=== PATIENT | male | born 1960 | race Caucasian/White ===

== ENCOUNTER 2020-01-10 04:38 | Outpatient (CLI) | payer MEDICAID, SELFPAY ==
[2020-01-14 14:14] LABS: PSA, Screening 1.2 ng/mL (0-3.5)
== END 2020-01-10 04:58 ==
PROVIDERS: PCP Emergency Medicine; Visit Provider Urology
DX: Z12.5 Encounter for screening for malignant neoplasm of prostate (principal)
CPT/HCPCS: 36415; 84153

== ENCOUNTER 2020-05-07 11:51 | Emergency (ER) | payer MEDICAID, SELFPAY ==
[2020-05-07 11:58] VITALS: BP 141/97; PULSE 88; RESP 18; TEMP 36.4; O2SAT 96
--- NOTE | 2020-05-07 12:15 | DI.RAD_ITS ---
EXAM: XR HAND RT COMPLETE CLINICAL HISTORY: middle finger pain. TECHNIQUE: 2D digital imaging was performed. COMPARISON: CR LEFT HAND COMPLETE from 01/05/2010 FINDINGS: There is no evidence of acute fracture or dislocation. There is deformity of the 5th metacarpal whic h is most probably from healed fracture site at this level. No radiopaque foreign body. No osseous lesions. IMPRESSION: No acute fracture evident. DATA REPOSITORY: RADIATION DOSE DELIVERED:
--- NOTE | 2020-05-07 12:55 | ED.GENADUL_ITS ---
Discharge Plan Disposition Patient Disposition: HOME Condition: Stable Discharge Details Clinical Impression: Finger pain, right Primary Care Provider: Unknown,Unknown ED Provider: Quan Sheth Home Meds and New Rx's Prescriptions: Continued hydrocortisone 28.4 GM cream 1 nitin Topical TID PRN RF: 0 cyanocobalamin (vitamin B-12) 1,000 MCG/1 ML solution 1,000 mcg IJ MONTHLY Qty: 1 RF: 0 sertraline [Zoloft] 50 mg Tablet 50 mg PO DAILY RF: 0 hydrochlorothiazide 12.5 mg Tablet 12.5 mg PO DAILY RF: 0 Discharge Instructions Instructions: Finger Sprain (ED) Additional Instructions: Examination appears to be more consistent with trauma than infection. X-ray is unremarkable. Splinting offered but declined. Please watch for new or worsening symptoms such as fever, redness, warmth, increased pain, etc. and return immediately to the ER. Otherwise I would recommend resting, elevating, cool compresses every 2 hours for 20 days. Kgpm-twm-ywoabge Tylenol and/or Motrin as directed for discomfort. Contact your primary care the next 24-48 hours to discuss outpatient reevaluation. Medical Decision Making 60-year-old gentleman wubhu-tjbg-gawapaef, presents for right third digit pain that occurred suddenly while lifting up a door. Neuro, vascular, tendon intact. Skin is intact. This appears more traumatic than infectious in nature. Discussed options, will obtain x-ray, no clear indication for antibiotic therapy Right hand x-ray read by me and confirmed by radiology as negative. Discussed x-ray findings and disposition with patient. He declines adilson taping or splinting. We discussed watching for symptoms of infection such as redness, warmth, increasing pain, fever, etc. and the importance of returning to the ER. Otherwise he will rest, elevate, cool compresses every 2 hours for treatment. Biwh-ozn-mctgmit Tylenol and/or Motrin. Medical Records Medical records reviewed: Yes I reviewed the patient's medical records. HPI General Mode of arrival: ambulatory . Date/Time Provider Initiated Documentation: 05/07/20 11:58 . Limitations to Documentation: no limitations . Information obtained by: patient . HPI Narrative: This is a 60-year-old gentleman, sbast-clag-lndwzzcj, past medical history that includes celiac disease, hypertension, presenting to the ER for right hand injury that occurred yesterday. He states that he was lifting a metal door from a shed yesterday, felt a pop or stinging in his right middle finger, and instantly felt pain. Reports the pain was moderate to severe yesterday however the pain now is only a 2 out of 10. He denies any numbness, tingling, weakness. He is able to fully move his finger but reports it feels tight and swollen which makes it difficult. He admits to bruising but denies redness, warmth, fever. He states this appears to be more traumatic like I hit my finger with a hammer as opposed to infectious. He spoke with a couple friends, they were concerned that this may be a spider bite. He states that his tetanus status is up-to-date. He has not taken any zkiz-mxf-dxltahb medications for his discomfort. No additional concerns or complaints at this time Related Data Home Medications Medication Instructions Recorded Confirmed cyanocobalamin (vitamin B-12) 1,000 mcg IJ MONTHLY #1 vial 06/06/12 05/07/20 hydrocortisone 1 nitin TOPICAL TID PRN script 06/06/12 05/07/20 hydrochlorothiazide 12.5 mg PO DAILY 05/07/20 05/07/20 sertraline [Zoloft] 50 mg PO DAILY 05/07/20 05/07/20 Allergies Allergy/AdvReac Type Severity Reaction Status Date / Time praziquantel Allergy Unknown Unverified 11/15/14 13:00 aspirin Allergy Unverified 11/15/14 13:00 hydrocodone AdvReac Intermediate Nausea Unverified 11/15/14 13:00 gluten AdvReac Diarrhea Unverified 11/15/14 13:00 General Stated Complaint: Cellulitis JOSE: 4 Review of Systems Constitutional Constitutional: Denies fever(s) and Denies weakness Musculoskeletal Musculoskeletal: Denies deformity, Reports arthralgias, Denies numbness, Reports stiffness and Denies tingling Integumentary/Breasts Skin/Breast: Denies erythema Neurologic Neurologic: Denies numbness, Denies tingling and Denies weakness [facility] Social History Smoking/Tobacco Use Status: Never Smoking risk assessment performed?: Yes Drug use: Occasionally Do you feel safe at home: Yes Do you feel safe in your relationship?: Yes Exam Const General: cooperative, healthy appearing, comfortable and no acute distress Orientation: alert and awake [facility] Head: normal to inspection, normocephalic and atraumatic Eyes General: appearance normal, both eyes and all related structures Conjunctivae: conjunctivae normal Sclera: sclerae normal Neck Neck: normal visual inspection, trachea midline and supple Resp Effort & Inspection: normal respiratory effort and able to speak in complete sentences Cardio Rate: regular rate Rhythm: regular rhythm Skin General skin exam: no rashes or lesions noted Neuro General: patient alert, patient awake, moves all extremities and no focal motor deficits Cognition: normal cognition Speech: speech normal Gait: normal gait Motor: muscle tone normal throughout Sensory Exam: no sensory deficits noted Extrem General: full ROM and capillary refill normal Other: Right hand third digit with diffuse mild ecchymosis and swelling that extends from the MCP joint distally almost to the DIP joint. Skin is intact. Neuro, vascular, tendon intact. There is minimal diffuse discomfort to palpation but there is no warmth or erythema. No induration or fluctuance. Normal capillary refill. Psych Appearance: grossly normal Mental Status: mental status grossly normal Course Vital Signs Vital signs: Vital Signs Temperature 36.4 C L 05/07/20 11:58 Pulse 88 05/07/20 11:58 Respiratory Rate 18 05/07/20 11:58 Blood Pressure 141/97 H 05/07/20 11:58 Pulse Oximetry 96 05/07/20 11:58 Temperature 36.4 C L 05/07/20 11:58 Temperature Source Temporal Artery Scan 05/07/20 11:58 Pulse 88 05/07/20 11:58 Respiratory Rate 18 05/07/20 11:58 Respiratory Effort Non-Labored 05/07/20 12:02 Blood Pressure 141/97 H 05/07/20 11:58 Blood Pressure Position Sitting 05/07/20 11:58 Pulse Oximetry 96 05/07/20 11:58 Oxygen Delivery Method Room Air 05/07/20 11:58 Oxygen Flow Rate 0 05/07/20 11:58 Pain Level 2 05/07/20 11:58
== END 2020-05-07 13:13 | disposition home or self-care (01) ==
PROVIDERS: Emergency Provider Physician Assistant
DX: S63.612A Unspecified sprain of right middle finger, initial encounter (principal); X50.0XXA Overexertion from strenuous movement or load, initial encounter
CPT/HCPCS: 99283; 73130; 99282

== ENCOUNTER 2021-02-25 03:56 | Outpatient (CLI) | payer MEDICAID, SELFPAY ==
[2021-02-25 12:13] LABS: Vitamin B12 573 pg/mL (193-986)
[2021-02-25 23:15] LABS: PSA, Screening 1.4 ng/mL (0.0-3.5)
[2021-02-26 00:47] LABS: Vitamin D 25 Total 37.4 ng/mL (30-100)
== END 2021-02-25 03:57 | disposition home or self-care (01) ==
LOC: LBO 03:56
PROVIDERS: Physician Assistant; Visit Provider Urology
DX: E55.9 Vitamin D deficiency, unspecified (principal); E53.8 Deficiency of other specified B group vitamins; Z12.5 Encounter for screening for malignant neoplasm of prostate
CPT/HCPCS: 36415; 82306; 84153; 82607

== ENCOUNTER 2021-02-26 04:02 | Outpatient (CLI) | payer MEDICAID, SELFPAY ==
[2021-02-26 10:05] LABS: ALT 45 U/L (16-63); AST 16 U/L (15-37); Albumin 4.4 g/dL (3.4-5.0); Alkaline Phosphatase 66 U/L (46-116); Anion Gap 10.4 mmol/L (3-11); BUN 25 mg/dL (7-18); Bilirubin, Total 1.3 mg/dL (0.2-1.0); CO2 29.6 mmol/L (21.0-32.0); CREATININE 1.1 mg/dL (0.70-1.30); Calcium 8.9 mg/dL (8.5-10.1); Calculated LDL 163 mg/dL (<100); Chloride 99 mmol/L (98-107); Cholesterol 231 mg/dL (<200); Glucose 109 mg/dL (74-106); HDL Cholesterol 48 mg/dL (40-60); Potassium 3.2 mmol/L (3.5-5.1); Sodium 139 mmol/L (136-145); Total Protein 7.4 g/dL (6.4-8.2); Triglyceride 104 mg/dL (<150)
== END 2021-02-26 04:03 | disposition home or self-care (01) ==
PROVIDERS: Visit Provider Physician Assistant
DX: I10 Essential (primary) hypertension (principal); E78.5 Hyperlipidemia, unspecified
CPT/HCPCS: 36415; 80053; 80061

== ENCOUNTER 2021-06-20 13:33 | Emergency (ER) | payer MEDICAID, SELFPAY ==
[2021-06-20 13:38] VITALS: BP 126/89; PULSE 81; RESP 16; TEMP 36.6; O2SAT 98
--- OUTSIDE RECORDS SUMMARY | 2021-06-20 13:49 | XMS_ITS ---
:1960 Author Care Team Providers Name Role Phone HEIDE CORRALES MD Urologist [phone] SANCHEZ AYALA DO Primary Care Provider [phone] Allergies Code Code System Name Reaction Severity Status Onset 2111455 RxNorm Gluten ? ? Active ? 5489 RxNorm Hydrocodone ? ? Active ? Iodine and Iodide Other Moderate to Active ? Containing Severe Products Panlor Vomiting Mild to Active ? (Hydrocodone-acet Moderate manning) 6401 RxNorm Praziquantel ? ? Active ? Medications Name Status Start Date Stop Date ? ? albuterol 90 mcg/actuation aerosol inhaler Active ? Not available Inhale 2 puffs every 4 hours by inhalation route as needed. aspirin 81 mg tablet,delayed release Completed ? 03/02/2021 Take 1 tablet every day by oral route. BD Luer-Chetna Syringe 3 mL 25 gauge x 1 Active ? Not available USE 1 SYRINGE MONTHLY FOR B12 INJECTION cholecalciferol (vitamin D3) 1,250 mcg (50,000 unit) capsule Act hillary ? Not available TAKE 1 CAPSULE BY MOUTH EVERY WEEK cyanocobalamin (vit B-12) 1,000 mcg/mL injection kit Active ? Not available Inject 1 mL every month by subcutaneous route. cyanocobalamin (vit B-12) 1,000 mcg/mL injection solution Comple rabia ? 03/02/2021 INJECT 1 MILLILITER IM EVERY 30 DAYS doxycycline monohydrate 100 mg capsule Completed ? 03/02/2021 Flovent HFA 110 mcg/actuation aerosol inhaler Active ? Not available Inhale 1 puff twice a day by inhalation route. fluoxetine 20 mg capsule Completed ? 022 TK 1 C PO D hydrochlorothiazide 50 mg tablet Active ? Not available TK 1 T PO D ProAir HFA 90 mcg/actuation aerosol Completed ? 03/02/2021 inhaler Problems Name Status Onset Date Source ? Vitamin B Deficiency Active 01/22/2019 ? Pernicious Anemia Active 01/22/2019 ? Anxiety Active 01/22/2019 ? Hypertensive Disorder Active 01/22/2019 ? Irritable Bowel Syndrome Active 01/22/2019 ? Cholelithiasis without Obstruction Active 01/22/2019 ? Celiac Disease Active 01/22/2019 ? Benign Prostatic Hyperplasia Active 01/22/2019 ? Seborrheic Dermatitis Active 01/22/2019 ? Tear of Lateral Meniscus of Knee Active 01/22/2019 ? Procedures Date Name Performed by ? 02/21/1999 Lithotripsy Information not avai lable Notes: at [facility] per pt. in effective pt. brought back to the OR a month later for an open procedure 03/02/2021 CT, Abdomen + Pelvis, W/o Contrast [facility] Radiology (Internal) [address] [place] [address] (Work Place) Results Lab Results Date Name Specimen Result Interpretation Description Value Range Status Address ? 03/02/2021 Urinalysis, Urine ? Color Yellow ? ? P _urology: 41 Dip[address], clean Medical Reflex Micro catch [email or web address] ? ? Urine ? Appearance Clear ? ? P_uro logy: 41 clean [employer] [email or web address] ? ? Urine ? Glucose Normal ? ? P_urolog y: 41 clean [employer] [email or web address] ? ? Urine ? Bilirubin Negative ? ? P_ur ology: 41 clean [employer] [email or web address] ? ? Urine ? Ketones Negative ? ? P_urol ogy: 41 clean [employer] [email or web address] ? ? Urine ? Specific 1.030 ? ? P_urolo gy: 41 clean [place] [employer] [email or web address] ? ? Urine ? Blood Small ? ? P[facility]urology: 41 clean [facility] ? ? Urine ? Ph 6.5 ? ? P_urology: 41 clean [facility] ? ? Urine ? Protein Negative ? ? P_urol ogy: 41 clean [facility] ? ? Urine ? Urobilinog 1 ? ? P_uro logy: 41 clean en [employer] [email or web address] ? ? Urine ? Nitrite negative ? ? P_urol ogy: 41 clean [facility] ? ? Urine ? Leukocyte Negative ? ? P_ur ology: 41 clean Esterase [employer] [email or web address] 02/25/2021 PSA, Serum or ? No ? ? ? [facility] observation [facility] nt recorded. Region[facility] Hospital: [address], [place] 01/25/2020 Urinalysis, Urine ? Color Yellow ? ? P _urology: [address] Dipstick, clean Medical Reflex Micro catch [address], [place] ? ? Urine ? Appearance Clear ? ? P_uro logy: [address] clean Medical catch [employer], [place] ? ? Urine ? Glucose Normal ? ? P_urolog y: [address], [place] ? ? Urine ? Bilirubin Negative ? ? P_ur ology: [address], [place] ? ? Urine ? Ketones Negative ? ? P_urol ogy: [address], [place] ? ? Urine ? Specific 1.025 ? ? P_urolo gy: [address] [place] Medical catch [address], [place] ? ? Urine ? Blood Trace ? ? P_urology: [address] catch [address], [place] ? ? Urine ? Ph 7.0 ? ? P_urology: [address] catch [address], [place] ? ? Urine ? Protein Negative ? ? P_urol ogy: [address] catch [address], [place] ? ? Urine ? Urobilinog 1 ? ? P_uro logy: 41 clean en Medical catch [address], [place] ? ? Urine ? Nitrite negative ? ? P_urol ogy: [address] catch [address], [place] ? ? Urine ? Leukocyte Negative ? ? P_ur ology: 41 clean Esterase Medical catch [employer], [place] 01/30/2019 PSA, Serum or S - PSA Scrn 1.4 NG/mL 0.0-4. Final [facility] Plasma [address] [place] [address] ab NG/mL (Internal) : [address], [facility] 01/30/2019 Urinalysis, Urine ? Color Yellow ? ? P _urology: [address] Dipstick, Medical Reflex Micro [address], [place] ? ? Urine ? Appearance Clear ? ? P_uro logy: [address], [place] ? ? Urine ? Glucose Normal ? ? P_urolog y: [address], [place] ? ? Urine ? Bilirubin Negative ? ? P_ur ology: [address], [place] ? ? Urine ? Ketones Negative ? ? P_urol ogy: [address], [place] ? ? Urine ? Specific 1.010 ? ? P_urolo gy: [address] [place] [employer] [email or web address] ? ? Urine ? Blood Negative ? ? P_urolog y: 41 [employer] [email or web address] ? ? Urine ? Ph 7.5 ? ? P_urology: 41 [employer] [email or web address] ? ? Urine ? Protein Trace ? ? P_urolog y: 41 [employer] [email or web address] ? ? Urine ? Urobilinog 0.2 ? ? P_uro logy: 41 en [facility] ? ? Urine ? Nitrite negative ? ? P_urol ogy: 41 [facility] ? ? Urine ? Leukocyte Negative ? ? P_ur ology: 41 Esterase [facility] [facility] 10/08/2016 Venipuncture BLD ? Venpn* ? ? Final [facility] Hospital L ab (Internal) : [address] 10/08/2016 Urinalysis, UR ? UA-WBC 0-3 [hpf] 0-3 Chhaya [facility] Microscopic [hpf] Hospi na Lab (Internal) : [address] t ? ? UR ? UA-RBC 0-2 [hpf] 0-2 Final [facility] [hpf] Hospital L ab (Internal) : [address] t ? ? UR ? UA-bacteri rare [hpf] none Final [facility] L ab [hpf] (Internal) : [address] t ? ? UR ? UA-epithel none seen none Final [facility] [hpf] seen Hospital L ab [hpf] (Internal) : [address] t ? ? UR ABNORMA UA-mucus few [hpf] none Final [facility] seen Hospital L ab [hpf] (Internal) : [address] 10/08/2016 Urinalysis, UR ? UA-color yellow pale Final [facility] Dipstick, yellow Hospita l Lab Reflex Micro (Int ernal): [address] t ? ? UR ? UA-appear clear clear Final [facility] Hospital L ab (Internal) : [address] t ? ? UR ? UA-spec 1.025 1.003- Final [facility] untry Grav 1.035 Hospital L ab (Internal) : [address] t ? ? UR ? UA-pH 6.0 [pH] 4.6-8. Final [facility] untry 0 [pH] Hospital L ab (Internal) : [address] ? ? UR ? UA-leuk negative negati Final [facility] Est Hospital L ab (Internal) : [address] ? ? UR ? UA-nitrite negative negati Final [facility] Hospital L ab (Internal) : [address] ? ? UR ? UA-prot negative negati Final [facility] Hospital L ab (Internal) : [address] ? ? UR ? UA-gluc negative negati Final [facility] Hospital L ab (Internal) : [address] ? ? UR ABNORMA UA-ketone trace negati Final [facility] Hospital L ab (Internal) : [address] ? ? UR ? UA-urobil normal normal Final [facility] ab (Internal) : [address] ? ? UR ? UA-bili negative negati Final [facility] L ab (Internal) : [address] ? ? UR ABNORMA UA-blood moderate negati Final [facility] Hospital L ab (Internal) : [address] 10/08/2016 Culture, BLD ? Final microbiolog ? Final [facility] Blood y results Hospita l Lab (Internal) : [address] 10/08/2016 Culture, BLD ? Final microbiolog ? Final [facility] Blood y results Hospita l Lab (Internal) : [address] 10/08/2016 Neutrophil BLD ? Anc-manual 5.47 ? Chhaya l [facility] Count, 10*3/uL Hospital Lab Absolute (Interna l): (Anc), Blood [address] 10/08/2016 Differential, BLD High Polys 92 % 40-75 Final [facility] Manual, Blood % Hos pital Lab (Internal) : [address] ? ? BLD ? Bands 0 % 0-5 % Final [facility] Hospital L ab (Internal) : [address] ? ? BLD Low Lymphs 5 % 20-50 Final [facility] Hospital L ab (Internal) : [address] ? ? BLD ? Real 2 % 2-10 % Final [facility] Hospital L ab (Internal) : [address] ? ? BLD ? Eos 1 % 0-6 % Final [facility] Hospital L ab (Internal) : [address] ? ? BLD ? Baso 0 % 0-1 % Final [facility] Hospital L ab (Internal) : [address] ? ? BLD ? Atyp Lymph 0 % ? Final [facility] Hospital L ab (Internal) : [address] t ? ? BLD ABNORMA Plts, Est. low adequa Final [facility] L te Hospital L ab (Internal) : [address] t ? ? BLD ? RBC normal normal Final [facility] Morphology Hospit al Lab (Internal) : [address] 10/08/2016 CMP, Serum or S ? g/r 105 mg/dL 74-106 Fin [facility] Plasma mg/dL Hospital L ab (Internal) : [address] ? ? S ? Bun 17 mg/dL 9-20 Final [facility] untry mg/dL Hospital L ab (Internal) : [address] ? ? S ? Crea 0.90 mg/dL 0.66-1 Final [facility] .25 Hospital L ab mg/dL (Internal) : [address] t ? ? S ? Ca 9.6 mg/dL 8.4-10 Final [facility] ountry .2 Hospital L ab mg/dL (Internal) : [address] ? ? S Low Na 136 mmol/L 137-14 Final [facility] 5 Hospital L ab mmol/L (Internal) : [address] ? ? S ? K 3.5 mmol/L 3.5-5. Final [facility] 1 Hospital L ab mmol/L (Internal) : [address] ? ? S ? Cl 100 mmol/L 98-107 Final [facility] mmol/L Hospital L ab (Internal) : [address] ? ? S ? Tco2 25.0 mmol/L 22.0-3 Final [facility] 0.0 Hospital L ab mmol/L (Internal) : [address] ? ? S ? Tp 7.6 g/dL 6.3-8. Final [place] untry 2 g/dL Hospital L ab (Internal) : [address] ? ? S ? Alb 4.8 g/dL 3.5-5. Final [place] [facility]try 0 g/dL Hospital L ab (Internal) : [address] ? ? S High Tbil 1.5 mg/dL 0.2-1. Final [facility] ountry 3 Hospital L ab mg/dL (Internal) : [address] ? ? S ? Alp 55 U/L 50-136 Final [place] [facility] try U/L Hospital L ab (Internal) : [address] t ? ? S ? Alt (Sgpt) 26 U/L 21-72 Final [facility] U/L Hospital L ab (Internal) : [address] t ? ? S ? Ast (Sgot) 18 U/L 17-59 Final [facility] U/L Hospital L ab (Internal) : [address] 10/08/2016 CBC W/ Auto BLD ? Wbc 6.0 10*3/uL 5.0-10 Fin al [facility] Diff .0 Hospital L ab 10*3/u (Internal) : L [address] ? ? BLD ? Rbc 4.94 4.60-6 Final [place] [facility] 10*6/uL .00 Hospital Lab 10*6/u (Internal) : L [address] ? ? BLD ? Hgb 16.5 g/dL 14.0-1 Final [facility] ountry 8.0 Hospital L ab g/dL (Internal) : [address] ? ? BLD ? Hct 45.3 % 41.0-5 Final [place] [facility] 1.0 % Hospital L ab (Internal) : [address] ? ? BLD ? Mcv 91.7 fL 80.0-9 Final [place] [facility] 6.0 fL Hospital L ab (Internal) : [address] ? ? BLD High Mch 33.4 pg 26.0-3 Final [place] [facility] 2.0 pg Hospital L ab (Internal) : [address] ? ? BLD High Mchc 36.4 g/dL 31.0-3 Final [place] [facility] 5.0 Hospital L ab g/dL (Internal) : [address] ? ? BLD ? Rdw 12.0 % 11.5-1 Final [place] [facility] 4.5 % Hospital L ab (Internal) : [address] ? ? BLD ? Plt 142 10*3/uL 130-45 Final [place] 0 Hospital L ab 10*3/u (Internal) : L [address] Past Encounters 03/02/2021 Induration Penis Plastica; Screening for Malignant Neoplasm of Prostate; Family History of Prostate Cancer; Urinary Tract Infectious Disease; Kidney Stone; Blood in Urine; Nodule of Lung; Low Back Pain Heide Corrales MD: [address] [place] [address], Ph. 01/25/2020 Induration Penis Plastica; Screening for Malignant Neoplasm of Prostate; Family History of Prostate Cancer; Urinary Tract Infectious Disease Heide Corrales MD: [address] [place] [address], Ph. Social History Tobacco Smoking Status Never Smoker Vaccine List None recorded. Plan of Care Reminders Provider Appointments None ? ? recorded. Lab None ? ? recorded. Referral None ? ? recorded. Procedures None ? ? recorded. Surgeries None ? ? recorded. Imaging None ? ? recorded. Vitals 03/02/2021 02:40PM Office 20 Height Weight BMI Blood Pressure 182.88 cm 98.88 kg 29.6 kg/m2 136/82 mm[Hg] 01/25/2020 03:30PM Office 15 Height Weight BMI Blood Pressure 182.88 cm 93.3 kg 27.9 kg/m2 120/98 mm[Hg] 01/30/2019 08:30AM Office 15 Height Weight BMI 182.88 cm 86.18 kg 25.8 kg/m2
--- NOTE | 2021-06-20 14:00 | DI.RAD_ITS ---
Exam(s) XR FOOT LT COMPLETE EXAM: XR FOOT LT COMPLETE CLINICAL HISTORY: Foot Pain. TECHNIQUE: 2D digital imaging was performed. Three views. COMPARISON: CR LEFT FOOT COMPLETE from 12/01/2009 FINDINGS: BONES: No acute fracture is present. No bony destructive lesion is seen. JOINTS: No dislocation present. Mild degenerative changes 1st MTP joint. Mild hallux valgus. SOFT TISSUE: Normal. IMPRESSION: No acute abnormality. DATA REPOSITORY: RADIATION DOSE DELIVERED:
--- NOTE | 2021-06-20 14:42 | DI.VRAD_ITS ---
PROCEDURE INFORMATION: Exam: XR Left Foot Exam date and time: 06/20/2021 2:16 PM Age: 61 years old Clinical indication: Pain; Foot; Left TECHNIQUE: Imaging protocol: XR Left foot. Views: 3 or more views. COMPARISON: No relevant prior studies available. FINDINGS: Bones/joints: Hallux valgus deformity is present. Mild degenerative changes of the 1st metatarsophalangeal joint. There is no evidence of acute fracture. There is no evidence of joint malalignment or dislocation. Soft tissues: Medial soft tissue swelling. IMPRESSION: 1. Hallux valgus deformity is present. 2. Medial soft tissue swelling. 3. Mild degenerative changes of the 1st metatarsophalangeal joint. 4. No evidence of acute fracture. 5. No evidence of acute dislocation. Dictated and Authenticated by: Juan Carlos Al MD. Ordering:DARLYN Nicole MD
--- NOTE | 2021-06-20 14:52 | W.ED.GENAD ---
Discharge Plan Disposition Patient Disposition: HOME Condition: Stable Discharge Details Clinical Impression: Left foot pain, Gout attack Primary Care Provider: Unknown,Unknown ED Provider: Bonnie Pat Home Meds and New Rx's Prescriptions: New cephalexin 500 mg tablet 500 mg PO BID 7 Days Qty: 14 0RF indomethacin 25 mg capsule 25 mg PO TID 7 Days Qty: 21 0RF Rx Instructions: administer with food or milk Continued cyanocobalamin (vitamin B-12) 1,000 MCG/1 ML solution 1,000 mcg IJ MONTHLY Qty: 1 0RF atorvastatin 40 mg Tablet 40 mg PO DAILY 0RF atorvastatin 10 mg Tablet 10 mg PO DAILY 0RF hydrochlorothiazide 12.5 mg Tablet 12.5 mg PO DAILY 0RF No Action hydrocortisone 28.4 GM cream 1 nitin Topical TID PRN 0RF Discharge Instructions Instructions: Bunion (ED), Gout (ED) Additional Instructions: At this time uric acid is pending. Please take indomethacin as prescribed. you may alternate this with Tylenol. Take the antibiotic as prescribed. Take both medications with food, take yogurt or probiotic while taking the antibiotics. Rest, ice, compression, elevation. Use the walking boot as needed for comfort. If no improvement after 5 to 7 days please follow-up with orthopedics and/or your primary care provider. Follow up with primary care provider in 3-5 days. Return to ED sooner if any worsening or concerns. Increase oral fluids. Please take Tylenol or Ibuprofen with food every 4-6 hours as needed for pain and swelling. Discussed with your primary care provider colchicine as a preventative for gout. Referrals: Kurtis Castañeda MD [ [facility] STAFF PHYSICIAN] - 1 week Medical Decision Making Patient reports increased foot pain after dancing yesterday. He does endorse swelling and erythema. 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 Patient reports a week and a half long history of foot pain. He did eat became ill yesterday. He does endorse alcohol he reports 3 shots of vodka daily. No significant injury noted. He does note that he has had an issue with this amended. He noted increased pain today upon wakening this tender to touch or any movement increased pain with ambulation and weightbearing. Denies any fever chills denies any calf pain or any other systemic associated symptoms. He does have a past medical history of hyperlipidemia, fatty liver disease. Differential diagnosis includes not limited to cellulitis, fracture, gout. Imaging protocol: XR Left foot. Views: 3 or more views. COMPARISON: No relevant prior studies available. FINDINGS: Bones/joints: Hallux valgus deformity is present. Mild degenerative changes of the 1st metatarsophalangeal joint. There is no evidence of acute fracture. There is no evidence of joint malalignment or dislocation. Soft tissues: Medial soft tissue swelling. IMPRESSION: 1. Hallux valgus deformity is present. 2. Medial soft tissue swelling. 3. Mild degenerative changes of the 1st metatarsophalangeal joint. 4. No evidence of acute fracture. 5. No evidence of acute dislocation. At this time I do suspect gouty arthritis. Discussed options with patient uric acid blood test ordered. We will give patient indomethacin and trial of cephalexin for possible cellulitis. We will place in a walking boot and referral will be given for clinical studies specialist. Discussed home care with patient who verbalized understanding. HPI General Mode of arrival: wheelchair. Date/Time Provider Initiated Documentation: 06/20/21 14:07. Limitations to Documentation: no limitations. Information obtained by: patient and RN notes reviewed. HPI Narrative: Patient reports increased foot pain after dancing yesterday. He does endorse swelling and erythema. 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 Patient reports a week and a half long history of foot pain. He did eat became ill yesterday. He does endorse alcohol he reports 3 shots of vodka daily. No significant injury noted. He does note that he has had an issue with this amended. He noted increased pain today upon wakening this tender to touch or any movement increased pain with ambulation and weightbearing. Denies any fever chills denies any calf pain or any other systemic associated symptoms. He does have a past medical history of hyperlipidemia, fatty liver disease. Related Data Home Medications Medication Instructions Recorded Confirmed cyanocobalamin (vitamin B-12) 1,000 mcg IJ MONTHLY #1 vial 06/06/12 06/20/21 1,000 mcg/mL injection solution hydrocortisone 1 % topical cream 1 nitin TOPICAL TID PRN script 06/06/12 06/20/21 hydrochlorothiazide 12.5 mg tablet 12.5 mg PO DAILY 05/07/20 06/20/21 atorvastatin 10 mg tablet 10 mg PO DAILY 06/20/21 06/20/21 atorvastatin 40 mg tablet 40 mg PO DAILY 06/20/21 06/20/21 cephalexin 500 mg tablet 500 mg PO BID 7 Days #14 tab 06/20/21 indomethacin 25 mg capsule 25 mg PO TID 7 Days #21 cap 06/20/21 Previous Rx's Medication Instructions Recorded cephalexin 500 mg tablet 500 mg PO BID 7 Days #14 tab 06/20/21 indomethacin 25 mg capsule 25 mg PO TID 7 Days #21 cap 06/20/21 Allergies Allergy/AdvReac Type Severity Reaction Status Date / Time praziquantel Allergy Unknown Unverified 06/20/21 13:53 aspirin Allergy Unverified 06/20/21 13:53 hydrocodone AdvReac Intermediate Nausea Unverified 06/20/21 13:53 gluten AdvReac Diarrhea Unverified 06/20/21 13:53 General Stated Complaint: Orthopedic JOSE: 4 Review of Systems All systems reviewed & are unremarkable except as noted in HPI and below Musculoskeletal Musculoskeletal: Reports as per HPI and Reports arthralgias PFSH All Active Problems (Updated 06/20/21 @ 15:52 by Bonnie Pat) Finger pain, right (Acute) Left foot pain (Acute) Gout attack (Acute) Social History Smoking/Tobacco Use Status: Never Smoking risk assessment performed?: Yes Alcohol Intake: current Alcohol type: hard liquor Drug use: Occasionally Substance use type: does not use Do you feel safe at home: Yes Do you feel safe in your relationship?: Yes Exam Const General: cooperative, healthy appearing, comfortable, no acute distress, well developed and well groomed Nutritional Appearance: average body habitus and well nourished Orientation: alert, awake and oriented x3 Extrem General: normal to inspection, no pedal edema and no calf tenderness Left lower extremity: lower leg Details: normal to inspection and no edema; Negative for no erythema, no tenderness and no localized swelling, ankle Details: normal to inspection and no edema; Negative for no tenderness and no swelling and foot Details: tenderness Location: of the great toe Location: at the MTP joint and warmth Course Vital Signs Vital signs: Vital Signs Temperature 36.6 C 06/20/21 13:38 Pulse 81 06/20/21 13:38 Respiratory Rate 16 06/20/21 13:38 Blood Pressure 126/89 06/20/21 13:38 Pulse Oximetry 98 06/20/21 13:38 Temperature 36.6 C 06/20/21 13:38 Temperature Source Temporal Artery Scan 06/20/21 13:38 Pulse 81 06/20/21 13:38 Respiratory Rate 16 06/20/21 13:38 Respiratory Effort 06/20/21 13:50 Blood Pressure 126/89 06/20/21 13:38 Blood Pressure Position Sitting 06/20/21 13:38 Pulse Oximetry 98 06/20/21 13:38 Oxygen Delivery Method Room Air 06/20/21 13:38 Oxygen Flow Rate 0 06/20/21 13:38 Pain Level 8 06/20/21 13:38
[2021-06-20] MEDS: Indomethacin 25 MG CAP 50 MG PO (15:50)
[2021-06-20] MEDS: Cephalexin 500 MG CAP PO (15:50)
[2021-06-20] MEDS: Cephalexin 500 MG CAP, 2 CAPS/BTL PO (15:50)
[2021-06-20 16:06] LABS: Uric Acid 7.1 mg/dL (3.5-7.2)
== END 2021-06-20 16:04 | disposition home or self-care (01) ==
PROVIDERS: Emergency Provider Registered Nurse Emergency
DX: M79.672 Pain in left foot (principal); M10.072 Idiopathic gout, left ankle and foot
CPT/HCPCS: 29515; 99283; 73630; 84550

== ENCOUNTER 2022-06-23 08:39 | Outpatient (CLI) | payer MEDICAID, SELFPAY ==
[2022-06-23 09:58] LABS: Bilirubin Negative (Negative); Blood Trace-intact (Negative); Clarity Clear (Clear); Glucose Negative (Negative); Ketones Negative (Negative); Leukocyte Esterase Negative (Negative); Nitrite Negative (Negative); pH 7.5 (5-8)
[2022-06-23 10:17] LABS: Bacteria Rare HPF (Negative); Crystals Negative HPF (Negative); Epithelial Cells Rare HPF (Negative); Mucus Trace (Negative); WBC 0-2 HPF (0-5)
[2022-06-23 10:18] LABS: C & S Indicated? No; Casts Negative LPF (Negative)
[2022-06-23 18:29] LABS: PSA, Screening 1.7 ng/mL (<=4.5)
== END 2022-06-23 08:40 | disposition home or self-care (01) ==
PROVIDERS: Visit Provider Urology
DX: R39.89 Other symptoms and signs involving the genitourinary system (principal)
CPT/HCPCS: 36415; 84153; 81003; 81015

== ENCOUNTER 2022-07-03 12:34 | Emergency (ER) | payer MEDICAID, SELFPAY ==
--- NOTE | 2022-07-03 12:30 | RT.EKG_ITS ---
APPROVED REPORT Exam: Resting ECG Reason for Exam: dizziness Patient Location: E HR:60 bpm ECG Measurements Heart Rate 60 AXIS VT 186 P 41 QRSd 91 QRS -8 QT 441 T 30 QTc 443 Conclusion Sinus rhythm...normal P axis, V-rate 60- 99
[2022-07-03 12:38] VITALS: BP 127/89; PULSE 64; RESP 20; TEMP 36.8; O2SAT 98
--- NOTE | 2022-07-03 12:54 | ED.GENADUL_ITS ---
Discharge Plan Disposition Patient Disposition: Home Discharge Details Clinical Impression: Dehydration after exertion Primary Care Provider: Unknown,Unknown ED Provider: Pelon Kyle Home Meds and New Rx's Prescriptions: No Action hydrocortisone 28.4 GM cream 1 nitin Topical TID PRN cyanocobalamin (vitamin B-12) 1,000 MCG/1 ML solution 1,000 mcg IJ MONTHLY Qty: 1 atorvastatin 40 mg Tablet 40 mg PO DAILY atorvastatin 10 mg Tablet 10 mg PO DAILY hydrochlorothiazide 12.5 mg Tablet 12.5 mg PO DAILY Discharge Instructions Instructions: Dehydration (ED) Additional Instructions: Please continue taking all your regular medication. Please make sure you hydrate yourself well. Please avoid any strenuous activity for the next 24 hours. I would suggest getting some hydration formula that you can take over the course of the next 2 days. Please follow-up with primary care doctor as needed. Medical Decision Making 62-year-old gentleman presents to the emergency department for evaluation of lightheadedness. EKG demonstrates a normal sinus rhythm at 60. Normal ST segments and T waves. Intervals are also normal. No signs of ischemia on EKG. From a cardiac perspective, he had a cardiac work-up at [facility] approximately a year ago for some ill-defined chest pains. At that time he had an a stress test and an echocardiogram that he reports is normal. He was placed on lisinopril and statins. He was not compliant with the statins because of cramps. He started taking the statin again 2 days ago. Patient's labs were unremarkable except for mild elevation of BUN consistent with dehydration. Following the liter of IV fluids patient states he felt great deal better. HPI General Date/Time Provider Initiated Documentation: 07/03/22 12:39 . HPI Narrative: 62-year-old male presented to the emergency room for evaluation of lightheadedness. He states that after spending approximate hour and a half outside washing his car, taking a shower, while trying to shave to get ready for a he felt lightheaded. He states that at some point he thought he was going to pass out. Not associated with any headache. No chest pain. No shortness of breath. No cough. No back pain. No abdominal pain. He states that he had 2 extra bowel movements which is unusual for him. The lightheadedness persisted. He states he was able to finish shaving and then lay down. Given that the symptoms persisted he came to the emergency department. Currently in the emergency department he is not lightheaded just feels a bit foggy. No focal weakness. No visual changes Related Data Home Medications Medication Instructions Recorded Confirmed cyanocobalamin (vitamin B-12) 1,000 mcg IJ MONTHLY #1 vial 06/06/12 07/03/22 1,000 mcg/mL injection solution hydrocortisone 1 % topical cream 1 nitin topical TID PRN 06/06/12 07/03/22 hydrochlorothiazide 12.5 mg tablet 12.5 mg PO DAILY 05/07/20 07/03/22 atorvastatin 10 mg tablet 10 mg PO DAILY 06/20/21 07/03/22 atorvastatin 40 mg tablet 40 mg PO DAILY 06/20/21 07/03/22 Allergies Allergy/AdvReac Type Severity Reaction Status Date / Time praziquantel Allergy Unknown Unverified 06/20/21 13:53 aspirin Allergy Unverified 06/20/21 13:53 hydrocodone AdvReac Intermediate Nausea Unverified 06/20/21 13:53 gluten AdvReac Diarrhea Unverified 06/20/21 13:53 General Stated Complaint: Dizzy/Sync JOSE: 3 Review of Systems Narrative: 10 point review of systems is negative unless otherwise specified in HPI PFSH All Active Problems (Updated 07/03/22 @ 14:49 by Pelon Kyle MD) Finger pain, right (Acute) Dehydration after exertion (Acute) Social History Smoking/Tobacco Use Status: Never Smoking risk assessment performed?: Yes Alcohol Intake: current Alcohol Intake frequency: 0-2 drinks per day Alcohol type: hard liquor Drug use: Occasionally Substance use type: does not use Do you feel safe at home: Yes Do you feel safe in your relationship?: Yes Exam Narrative Exam Narrative: Adult normal exam General: A,A Ox3, Calm, no apparent distress, well developed, pleasant and cooperative Head Size/Shape: normocephalic, atraumatic Eyes Pupils: PERRLA Extraocular Mobility: intact and symmetrical, no nystagmus Conjunctiva: non-injected, anicteric, no discharge Ears, Nose, Throat Nares: patent bilaterally Oral Cavity: moist Neck: Supple Respiratory Respiratory Effort: no dyspnea Auscultation: clear to auscultation bilaterally, normal breath sounds, no wheezing, no rales/crackles Cardiovascular Heart Auscultation: regular rate and rhythm, normal S1, normal S2, no murmurs, no rubs, no gallops, Abdomen Inspection and Palpation: soft, non-tender, non-distended, no hepatosplenomegaly Musculoskeletal System Joints, Bones, and Muscles: no deformities Extremities: warm and well-perfused, no cyanosis, capillary refill <2 seconds Skin Skin Inspection: no rash, no lesions, no bruising Neurological Motor: normal tone, normal strength, moving all extremities equally 2-12 grossly intact Psychiatric: good insight, good judgement, normal mood and affect Course Vital Signs Vital signs: Vital Signs Temperature 36.8 C 07/03/22 12:38 Pulse 64 07/03/22 12:38 Respiratory Rate 20 07/03/22 12:38 Blood Pressure 127/89 07/03/22 12:38 Pulse Oximetry 98 07/03/22 12:38 Temperature 36.8 C 07/03/22 12:38 Temperature Source Oral 07/03/22 12:38 Pulse 64 07/03/22 12:38 Respiratory Rate 20 07/03/22 12:38 Respiratory Effort Normal, Non-Labored 07/03/22 12:49 Blood Pressure 127/89 07/03/22 12:38 Blood Pressure Position Supine 07/03/22 12:38 Pulse Oximetry 98 07/03/22 12:38 Oxygen Delivery Method Room Air 07/03/22 12:38 Oxygen Flow Rate 0 07/03/22 12:38 Pain Level 0 07/03/22 12:38
[2022-07-03 12:57] VITALS: RESP 16
[2022-07-03] MEDS: Normal Saline 1,000 ML 1000 ML IV (13:15)
[2022-07-03 13:26] LABS: Abs Immature Grans 0.02 10^3/uL (0.0-0.06); Absolute Basophil Count 0.02 10^3/uL (0.0-0.2); Absolute Eosinophil Count 0.03 10^3/uL (0.0-0.7); Absolute Lymphocyte Count 0.76 10^3/uL (1.2-3.4); Absolute Monocyte Count 0.49 10^3/uL (0.1-0.8); Absolute Neutrophil Count 4.16 10^3/uL (1.2-6.7); Basophils % 0.4; Eosinophils % 0.5; HCT 38.6 % (40.0-50.0); HGB 14.2 g/dL (13.5-17.5); Immature Grans % 0.4; Lymphocytes % 13.9; MCH 33.9 pg (27.0-33.0); MCHC 36.8 % (32.0-36.0); MCV 92 fL (80-95); MPV 9.4 fL (8.0-11.0); Monocytes % 8.9; Neutrophils % 75.9; Platelet Count 154 10^3/uL (130-400); RBC 4.19 10^6/uL (4.36-5.78); RDW 11.5 % (11.8-14.1); RDW-SD 38.5 fL; WBC 5.48 10^3/uL (4.4-10.8)
[2022-07-03 13:40] LABS: ALT 30 U/L (16-63); AST 15 U/L (15-37); Albumin 4.2 g/dL (3.4-5.0); Alkaline Phosphatase 54 U/L (46-116); Anion Gap 7.4 mmol/L (3-11); BUN 27 mg/dL (7-18); Bilirubin, Total 1.1 mg/dL (0.2-1.0); CO2 27.6 mmol/L (21.0-32.0); CREATININE 1.3 mg/dL (0.70-1.30); Calcium 8.9 mg/dL (8.5-10.1); Chloride 102 mmol/L (98-107); Estimated GFR 62.89 (mL/min/1.73m2); Glucose 122 mg/dL (74-106); Potassium 3.7 mmol/L (3.5-5.1); Sodium 137 mmol/L (136-145); Total Protein 7.1 g/dL (6.4-8.2); Troponin I < 50 ng/L (<or=60)
[2022-07-03 14:53] VITALS: BP 123/78; PULSE 64; RESP 18; O2SAT 99
== END 2022-07-03 14:57 | disposition home or self-care (01) ==
PROVIDERS: Emergency Provider Emergency Medicine; PCP Physician Assistant
DX: R42 Dizziness and giddiness (principal); R53.83 Other fatigue; R51.9 Headache, unspecified; E86.0 Dehydration
CPT/HCPCS: 36415; 80053; 93005; 96360; 99283; 84484; 85025; 93010; 99284

== ENCOUNTER 2023-02-16 11:02 | Emergency (ER) | payer MEDICAID, SELFPAY ==
--- NOTE | 2023-02-16 11:00 | RT.EKG_ITS ---
APPROVED REPORT Exam: Resting ECG Reason for Exam: sob Patient Location: E HR:72 bpm ECG Measurements Heart Rate 72 AXIS MI 177 P 8 QRSd 102 QRS 5 QT 404 T 47 QTc 444 Conclusion Sinus rhythm...normal P axis, V-rate 60- 99 Normal sinus rhythm at a rate of 72. Normal axis. Interventricular conduction delay QRS 102 ms. MI and QTc within normal limits. No acute ST segment abnormalities. Compared to prior dated earlier t his year. No acute injury pattern.
[2023-02-16 11:06] VITALS: BP 103/69; PULSE 96; RESP 20; TEMP 36.8; O2SAT 97
--- NOTE | 2023-02-16 11:11 | W.ED.GENAD ---
Discharge Plan Disposition Patient Disposition: Home Discharge Details Clinical Impression: Upper respiratory infection Primary Care Provider: Anant Lamb ED Provider: Matti Sarabia Home Meds and New Rx's Prescriptions: New benzonatate 150 mg capsule 150 mg PO TID PRN (Reason: cough) Qty: 30 0RF Continued hydrocortisone 28.4 GM cream 1 nitin Topical TID PRN cyanocobalamin (vitamin B-12) 1,000 MCG/1 ML solution 1,000 mcg IJ MONTHLY Qty: 1 atorvastatin 40 mg Tablet 40 mg PO DAILY atorvastatin 10 mg Tablet 10 mg PO DAILY hydrochlorothiazide 12.5 mg Tablet 12.5 mg PO DAILY albuterol sulfate [Ventolin HFA] 90 mcg/actuation HFA aerosol inhaler 2 inh INHALATION Q4H PRN Patient Comments: INHALE 2 PUFFS BY MOUTH EVERY 4 HOURS NEEDED FOR WHEEZING, USE WITH SPACER Discharge Instructions Instructions: Benzonatate (By mouth), Upper Respiratory Infection (ED) Additional Instructions: You were seen in the emergency department for your cough for 3 days. There is no strain on your heart per labs, no severe elevation of white blood cells and your lactate is negative meaning you are not septic. Your chest x-ray is clear of any focal pneumonia. Please take luzq-bfu-[id number] cold medicines like Mucinex. Please use therapeutic dosing of Tylenol (acetamenophen) & Advil (ibuprofen) in an alternating fashion as follows: Take 1000mg of Tylenol every 6 hours without missing doses- that is 4 times per day. Care Home in between the Tylenol dosings, take 400-600mg of Advil also on a 6 hour schedule, that is also 4 times per day. The daily maximum dosing of Tylenol is 4000mg, and the daily maximum dosing of Advil is 2400mg. This is safe to do for weeks. Please note that some common cold medications & prescription pain medications may contain acetamenophen and you need to read OTC drug labels and factor that in to maximum daily dosings. Take the prescribed benzonatate for cough suppression 3 times per day as needed but perform deep breathing exercises if taking this medication frequently. Please return for failure to improve by day 7-10 of illness or significant worsening with respiratory distress Referrals: Anant Lamb [Primary Care Provider] - Discharge Data Discharge Date/Time-TO BE ENTERED AT DEPARTURE: 12/27/23 13:06 Medical Decision Making This dictation utilizes ixktf-zu-rmxw dictation software and may contain unedited grammatical errors. 62 y/o M presents to ED today with a chief complaint of generalized cold symptoms, productive cough, mild shortness of breath in the setting of chronic asthma. Patients symptoms onset about 3 days ago, his young son has similar symptoms. Patients' medical history: asthma, HTN. Family and social history: sick contact, no travel, otherwise negative. Pertinent exam findings / vital signs include question mild diminished lung sounds L middle lobes, no overt rhonchi, non-hypoxic, nontoxic overall. Differential / pathologies of concern include Pneumonia, Viral Syndrome, URI, Unlikely cardiac in nature. Diagnostic studies of: -CBC, CMP, Trop I, BNP, Mg++, CXR, EKG. -CBC no leukocytosis -CMP no major electrolyte abnormalities -Trop I/BNP neg -EKG wnl, NSR, no ST changes, normal axis, good R wave progression, normal MO intervals, narrow QRS, rate 70s -CXR no focal pneumonia Interventions of: -Discussed likely viral syndrome with the patient but prescribed him Tessalon Perles for comfort and getting some rest at night, recommend he return if symptoms are worsening over the course of 7 to 10 days onset for empiric antibiotics at that time, the patient was comfortable with this disposition. Findings not consistent with hypoxemic respiratory failure, sepsis, pneumonia. Disposition of Upper Respiratory Infection. Patient verbalized understanding of the plan and return to ED criteria and engaged in shared decision making. Medical Records Medical records reviewed: Yes I reviewed the patient's medical records. Imaging Data Radiologic Study: Imaging: X-Ray Radiologist's impression: XR CHEST 2V PA LATERAL EXAM: XR CHEST 2V PA LATERAL CLINICAL HISTORY: cough. TECHNIQUE: 2D digital imaging was performed. COMPARISON: No exams were available for comparison FINDINGS: 2 views: Heart size is normal. The mediastinum is not widened. Lungs are clear. No infiltrates nor pleural effusions. IMPRESSION: No acute pulmonary findings. Lab Data Lab results narrative: POC Covid/Flu negative Labs: Laboratory Tests Range/Units 02/16/23 11:42 WBC (4.4-10.8) 10^3/uL 5.19 RBC (4.36-5.78) 10^6/uL 4.31 L Hgb (13.5-17.5) g/dL 14.3 Hct (40.0-50.0) % 40.3 MCV (80-95) fL 94 MCH (27.0-33.0) pg 33.2 H MCHC (32.0-36.0) % 35.5 RDW (11.8-14.1) % 11.7 L Plt Count (130-400) 10^3/uL 168 MPV (8.0-11.0) fL 9.4 Immature Gran % 0.2 Neutrophils % 66.7 Lymphocytes % 21.0 Monocytes % 9.8 Eosinophils % 1.5 Basophils % 0.8 Nucleated RBC % (0.0-0.3) % 0.0 Absolute Neutrophils (1.2-6.7) 10^3/uL 3.46 Absolute Lymphocytes (1.2-3.4) 10^3/uL 1.09 L Absolute Monocytes (0.1-0.8) 10^3/uL 0.51 Absolute Eosinophils (0.0-0.7) 10^3/uL 0.08 Absolute Basophils (0.0-0.2) 10^3/uL 0.04 VBG Lactate (0.6-1.4) mmol/L 0.9 Sodium (136-145) mmol/L 139 Potassium (3.5-5.1) mmol/L 3.8 Chloride (98-107) mmol/L 103 Carbon Dioxide (21.0-32.0) mmol/L 30.8 Anion Gap (3-11) mmol/L 5.2 BUN (7-18) mg/dL 30 H Creatinine (0.70-1.30) mg/dL 1.1 Est GFR (CKD-EPI 2020) (mL/min/1.73m2) 76.85 Glucose (74-106) mg/dL 114 H Calcium (8.5-10.1) mg/dL 9.4 Total Bilirubin (0.2-1.0) mg/dL 1.0 AST (15-37) U/L 16 ALT (16-63) U/L 32 Alkaline Phosphatase (46-116) U/L 65 Troponin I (<or=60) ng/L < 50 NT-Pro-B Natriuret Pep (<300) pg/mL 76 Total Protein (6.4-8.2) g/dL 7.5 Albumin (3.4-5.0) g/dL 4.2 HPI General Date/Time Provider Initiated Documentation: 02/16/23 11:11. HPI Narrative: 62 year-old male presents to ED today by POV/ambulating with a chief complaint of cough, L axillary rib pain when coughing, sometimes producing dark brown/green sputum with onset 3 days ago. His son has similar symptoms. Quality described as shortness of breath that is positional with bending over, no radiation to sinus congestion, chest pain, fever, nausea/vomiting. Severity is described as 5-6/10. Palliating factors include nothing specific. Provoking factors include nothing specific. Events leading up to the incident/Associated Symptoms: Patient has chronic asthma. Patient not anticoagulated. Related Data Home Medications Medication Instructions Recorded Confirmed cyanocobalamin (vitamin B-12) 1,000 mcg IJ MONTHLY #1 vial 06/06/12 02/16/23 1,000 mcg/mL injection solution hydrocortisone 1 % topical cream 1 nitin topical TID PRN 06/06/12 02/16/23 hydrochlorothiazide 12.5 mg tablet 12.5 mg PO DAILY 05/07/20 02/16/23 atorvastatin 10 mg tablet 10 mg PO DAILY 06/20/21 02/16/23 atorvastatin 40 mg tablet 40 mg PO DAILY 06/20/21 02/16/23 albuterol sulfate 90 mcg/actuation 2 inh inhalation Q4H PRN 02/16/23 02/16/23 aerosol inhaler (Ventolin HFA) benzonatate 150 mg capsule 150 mg PO TID PRN cough #30 caps 02/16/23 Previous Rx's Medication Instructions Recorded benzonatate 150 mg capsule 150 mg PO TID PRN cough #30 caps 02/16/23 Allergies Allergy/AdvReac Type Severity Reaction Status Date / Time praziquantel Allergy Unknown Unverified 02/16/23 11:08 aspirin Allergy Unverified 02/16/23 11:08 hydrocodone AdvReac Intermediate Nausea Unverified 02/16/23 11:08 gluten AdvReac Diarrhea Unverified 02/16/23 11:08 General Stated Complaint: RespSymp JOSE: 4 Review of Systems All systems reviewed & are unremarkable except as noted in HPI and below PFSH All Active Problems (Updated 02/16/23 @ 12:55 by JODI Santamaria) Upper respiratory infection (Acute) Finger pain, right (Acute) Social History Smoking/Tobacco Use Status: Never Smoking risk assessment performed?: Yes Alcohol Intake: current Alcohol Intake frequency: 0-2 drinks per day Alcohol type: hard liquor Drug use: Occasionally Substance use type: does not use Do you feel safe at home: Yes Do you feel safe in your relationship?: Yes Exam Narrative Exam Narrative: GENERAL APPEARANCE: Well-nourished, non-toxic, awake and alert, atraumatic, no acute distress. SKIN: Warm, pink, dry, intact, without rashes/lesions/ulcerations. HEAD: Normocephalic, atraumatic, normal hair distribution for gender/age. EYES: Pupils PERRLA, EOMs intact without nystagmus, normal conjunctiva, no exudates on lids/lashes. ENT: Nares patent, no circumoral cyanosis, no facial swelling NECK: Supple, trachea midline, painless cervical ROM. LUNGS/CHEST: Lungs CTA bilaterally- question mild diminished lung sounds L middle lobes, no rhonchi, no rales, non-labored respirations, normal A/P diameter, symmetrical expansion, no chest wall deformity HEART (CV/PV): Regular rate and rhythm without murmur, no peripheral edema, no JVD. ABDOMEN: Soft, non-distended, no guarding. MSK: Normal ROM, no swelling/deformity to bilateral UEs or LEs, moving all extremities without weakness, no cyanosis, spine midline without tenderness, normal curvature. NEURO: Mental Status AAOx4 - alert to person, place, time, events No facial droop, no forehead involvement. Motor: No focal weakness - strength 5/5 in bilateral UEs and LEs, proximal and distal, symmetric. Sensory: sensation intact to light touch globally. Gait normal: patient ambulated without ataxia into ED room. PSYCH: euthymic, cooperative, pleasant, appropriate speech Course Vital Signs Vital signs: Vital Signs Temperature 36.8 C 02/16/23 11:06 Pulse 96 H 02/16/23 11:06 Respiratory Rate 20 02/16/23 11:06 Blood Pressure 103/69 02/16/23 11:06 Pulse Oximetry 97 02/16/23 11:06 Temperature 36.8 C 02/16/23 11:06 Temperature Source Oral 02/16/23 11:06 Pulse 96 H 02/16/23 11:06 Respiratory Rate 20 02/16/23 11:06 Respiratory Effort Normal, Non-Labored 02/16/23 11:07 Blood Pressure 103/69 02/16/23 11:06 Blood Pressure Position Sitting 02/16/23 11:06 Pulse Oximetry 97 02/16/23 11:06 Oxygen Delivery Method Room Air 02/16/23 11:06 Oxygen Flow Rate 0 02/16/23 11:06 Pain Level 6 02/16/23 11:06 PAWSS Have you Been Recently Intoxicated or Drunk Within the Last 30 days?: No Have you Ever Experienced Previous Episodes of Alcohol Withdrawal?: No Have you ever Experienced Withdrawal Seizures?: No Have you ever Experienced Delirium Tremens(DT)s?: No Have you ever undergone Alcohol Rehabilitation Treatment (i.e, inpt ot outpatient treatment programs)?: No Have you ever Experienced Blackouts?: No Have you ever Combined Alcohol with other Downers within the last 90 days?: No Have you ever Combined Alcohol with any other Substance of Abuse during the last 90 days?: No Positive Blood Alcohol level on Presentation? [PCS.BAL]: No Evidence of Increased Autonomic Activity (i.e. HR>120, tremor, sweating, agitation, nausea)?: No Result: 0
--- NOTE | 2023-02-16 11:15 | DI.RAD_ITS ---
Exam(s) XR CHEST 2V PA LATERAL EXAM: XR CHEST 2V PA LATERAL CLINICAL HISTORY: cough. TECHNIQUE: 2D digital imaging was performed. COMPARISON: No exams were available for comparison FINDINGS: 2 views: Heart size is normal. The mediastinum is not widened. Lungs are clear. No infiltrates nor pleural effusions. IMPRESSION: No acute pulmonary findings. DATA REPOSITORY: RADIATION DOSE DELIVERED:
[2023-02-16 11:45] VITALS: BP 103/69; PULSE 96; RESP 20; TEMP 36.8; O2SAT 97
[2023-02-16 11:49] LABS: Lactate 0.9 mmol/L (0.6-1.4)
[2023-02-16 11:50] LABS: Abs Immature Grans 0.01 10^3/uL (0.0-0.06); Absolute Basophil Count 0.04 10^3/uL (0.0-0.2); Absolute Eosinophil Count 0.08 10^3/uL (0.0-0.7); Absolute Lymphocyte Count 1.09 10^3/uL (1.2-3.4); Absolute Monocyte Count 0.51 10^3/uL (0.1-0.8); Absolute Neutrophil Count 3.46 10^3/uL (1.2-6.7); Basophils % 0.8; Eosinophils % 1.5; HCT 40.3 % (40.0-50.0); HGB 14.3 g/dL (13.5-17.5); Immature Grans % 0.2; MCH 33.2 pg (27.0-33.0); MCHC 35.5 % (32.0-36.0); MCV 94 fL (80-95); MPV 9.4 fL (8.0-11.0); Monocytes % 9.8; Neutrophils % 66.7; Platelet Count 168 10^3/uL (130-400); RBC 4.31 10^6/uL (4.36-5.78); RDW 11.7 % (11.8-14.1); RDW-SD 40.6 fL; WBC 5.19 10^3/uL (4.4-10.8)
[2023-02-16 12:15] LABS: ALT 32 U/L (16-63); AST 16 U/L (15-37); Albumin 4.2 g/dL (3.4-5.0); Alkaline Phosphatase 65 U/L (46-116); Anion Gap 5.2 mmol/L (3-11); BUN 30 mg/dL (7-18); CO2 30.8 mmol/L (21.0-32.0); CREATININE 1.1 mg/dL (0.70-1.30); Calcium 9.4 mg/dL (8.5-10.1); Chloride 103 mmol/L (98-107); Estimated GFR 76.85 (mL/min/1.73m2); Glucose 114 mg/dL (74-106); NT-proBNP 76 pg/mL (<300); Potassium 3.8 mmol/L (3.5-5.1); Sodium 139 mmol/L (136-145); Total Protein 7.5 g/dL (6.4-8.2); Troponin I < 50 ng/L (<or=60)
--- NOTE | 2023-02-16 17:26 | NUR.NOTE ---
[facility] called stating that they only had 100mg and 200mg benzonate. Per Dr. Lizarraga they were told to dispense 100mg with the same directions. Nursing Note:
== END 2023-02-16 13:06 | disposition home or self-care (01) ==
PROVIDERS: Emergency Provider Physician Assistant; PCP Physician Assistant
DX: J06.9 Acute upper respiratory infection, unspecified (principal); Z11.52 Encounter for screening for COVID-19
CPT/HCPCS: 36415; 80053; 87426; 93005; 99283; 71046; 83605; 83880; 84484; 85025; 93010

== ENCOUNTER 2023-05-02 14:58 | Emergency (ER) | payer MEDICAID, SELFPAY ==
[2023-05-02] VITALS (28 sets, daily range): BP systolic 110–132; BP diastolic 70–86; PULSE 63–88; RESP 15–21; TEMP 36.8; O2SAT 95–98
--- NOTE | 2023-05-02 15:00 | RT.EKG_ITS ---
APPROVED REPORT Exam: Resting ECG Reason for Exam: palpations Patient Location: E HR:76 bpm ECG Measurements Heart Rate 76 AXIS NJ 174 P 56 QRSd 89 QRS 20 QT 405 T 44 QTc 456 Conclusion Sinus rhythm...normal P axis, V-rate 60- 99 Physician: no stemi
[2023-05-02 15:28] LABS: Abs Immature Grans 0.03 10^3/uL (0.0-0.06); Absolute Basophil Count 0.05 10^3/uL (0.0-0.2); Absolute Eosinophil Count 0.06 10^3/uL (0.0-0.7); Absolute Lymphocyte Count 1.29 10^3/uL (1.2-3.4); Absolute Monocyte Count 0.61 10^3/uL (0.1-0.8); Absolute Neutrophil Count 3.62 10^3/uL (1.2-6.7); Basophils % 0.9; Eosinophils % 1.1; HCT 41.9 % (40.0-50.0); Immature Grans % 0.5; Lymphocytes % 22.8; MCH 32.6 pg (27.0-33.0); MCHC 35.8 % (32.0-36.0); MCV 91 fL (80-95); MPV 9.2 fL (8.0-11.0); Monocytes % 10.8; Neutrophils % 63.9; Platelet Count 169 10^3/uL (130-400); RDW 11.6 % (11.8-14.1); RDW-SD 38.6 fL; WBC 5.66 10^3/uL (4.4-10.8)
--- NOTE | 2023-05-02 15:40 | W.ED.GENAD ---
Discharge Plan Disposition Patient Disposition: Home Condition: Stable Discharge Details Clinical Impression: Chest pain of uncertain etiology Primary Care Provider: Anant Lamb ED Provider: Matti Sarabia Home Meds and New Rx's Prescriptions: No Action hydrocortisone 28.4 GM cream 1 nitin Topical TID PRN cyanocobalamin (vitamin B-12) 1,000 MCG/1 ML solution 1,000 mcg IJ MONTHLY Qty: 1 atorvastatin 40 mg Tablet 40 mg PO DAILY atorvastatin 10 mg Tablet 10 mg PO DAILY lisinopril 10 mg tablet 10 mg PO DAILY Patient Comments: TAKE ONE TABLET BY MOUTH EVERY DAY hydrochlorothiazide 12.5 mg Tablet 12.5 mg PO DAILY albuterol sulfate [Ventolin HFA] 90 mcg/actuation HFA aerosol inhaler 2 inh INHALATION Q4H PRN Patient Comments: INHALE 2 PUFFS BY MOUTH EVERY 4 HOURS NEEDED FOR WHEEZING, USE WITH SPACER Discharge Instructions Instructions: Chest Pain (ED) Additional Instructions: You were seen in the emergency department for your chest pain with some dizziness, cardiac workup was negative for any damage to your heart., There is no blood clot in your lungs. There was no pneumonia seen on your chest x-ray, I think you should update your echocardiogram and stress test and speak with your doctor about a recheck of your cholesterol levels. Please return to the emergency department for any chest pain especially with dizziness, sweating, feelings of near fainting, shortness of breath. Referrals: Anant Lamb [Primary Care Provider] - Discharge Data Discharge Date/Time-TO BE ENTERED AT DEPARTURE: 05/02/23 19:38 HPI General Date/Time Provider Initiated Documentation: 05/02/23 15:19. HPI Narrative: 63 year-old male presents to ED today by POV/ambulating with a chief complaint of brief chest pains with dizziness and some radiation to L neck and jaw with onset about 3 hours ago- states it lasted for about 1.5-2 minutes in two instances- non-exertional at onset. Quality described as aching central chest pain, also reports some pleuritic L back pain for a week, no radiation to diaphoresis, syncope, hemoptysis, abdominal pain, endorses nausea, denies active chest pain, endorses that a URI has been going around his household, and that he just drove to [place] and back 1.5 weeks ago, was in the car for about 80 hours. Severity is described as 7/10 at onset, 0/10 currently. Palliating factors include took 325mg aspirin at home. Provoking factors include nothing specific. Events leading up to the incident/Associated Symptoms: Patient has had an ECHO and stress test 2-2.5 years ago with no interventions needed, was started on a statin at that time, endorses FHx of angina in his father. Patient not anticoagulated. Related Data Home Medications Medication Instructions Recorded Confirmed cyanocobalamin (vitamin B-12) 1,000 mcg IJ MONTHLY #1 vial 06/06/12 05/02/23 1,000 mcg/mL injection solution hydrocortisone 1 % topical cream 1 nitin topical TID PRN 06/06/12 05/02/23 hydrochlorothiazide 12.5 mg tablet 12.5 mg PO DAILY 05/07/20 05/02/23 atorvastatin 10 mg tablet 10 mg PO DAILY 06/20/21 05/02/23 atorvastatin 40 mg tablet 40 mg PO DAILY 06/20/21 05/02/23 albuterol sulfate 90 mcg/actuation 2 inh inhalation Q4H PRN 02/16/23 05/02/23 aerosol inhaler (Ventolin HFA) lisinopril 10 mg tablet 10 mg PO DAILY 05/02/23 05/02/23 Allergies Allergy/AdvReac Type Severity Reaction Status Date / Time praziquantel Allergy Unknown Unverified 02/16/23 11:08 aspirin Allergy Unverified 02/16/23 11:08 hydrocodone AdvReac Intermediate Nausea Unverified 02/16/23 11:08 gluten AdvReac Diarrhea Unverified 02/16/23 11:08 General Stated Complaint: Chest Pain JOSE: 3 Review of Systems All systems reviewed & are unremarkable except as noted in HPI and below Exam Narrative Exam Narrative: GENERAL APPEARANCE: Well-nourished, non-toxic, awake and alert, atraumatic, no acute distress. SKIN: Warm, pink, dry, intact, without rashes/lesions/ulcerations. HEAD: Normocephalic, atraumatic, normal hair distribution for gender/age. EYES: Pupils PERRLA, EOMs intact without nystagmus, normal conjunctiva, no exudates on lids/lashes. ENT: Nares patent, no circumoral cyanosis, no facial swelling NECK: Supple, trachea midline, painless cervical ROM. LUNGS/CHEST: Lungs CTA bilaterally- no rhonchi/rales/wheezes diffusely, non-labored respirations, normal A/P diameter, symmetrical expansion, no chest wall deformity HEART (CV/PV): Regular rate and rhythm without murmur, no peripheral edema, no JVD. ABDOMEN: Soft, non-distended, no guarding. MSK: Normal ROM, no swelling/deformity to bilateral UEs or LEs, moving all extremities without weakness, no cyanosis, spine midline without tenderness, normal curvature. NEURO: Mental Status AAOx4 - alert to person, place, time, events No facial droop, no forehead involvement. Motor: No focal weakness - strength 5/5 in bilateral UEs and LEs, proximal and distal, symmetric. Sensory: sensation intact to light touch globally. Gait normal: patient ambulated without ataxia into ED room. PSYCH: euthymic, cooperative, pleasant, appropriate speech Course Vital Signs Vital signs: Vital Signs Temperature 36.8 C 05/02/23 15:01 Pulse 75 05/02/23 15:01 Respiratory Rate 18 05/02/23 15:01 Blood Pressure 124/82 05/02/23 15:01 Pulse Oximetry 96 05/02/23 15:01 Temperature 36.8 C 05/02/23 15:01 Temperature Source Temporal Artery Scan 05/02/23 15:01 Pulse 75 05/02/23 15:01 Respiratory Rate 18 05/02/23 15:10 Respiratory Effort Normal, Non-Labored 05/02/23 15:10 Respiratory Depth Normal 05/02/23 15:10 Respiratory Pattern Normal 05/02/23 15:10 Blood Pressure 124/82 05/02/23 15:01 Blood Pressure Position Sitting 05/02/23 15:01 Pulse Oximetry 96 05/02/23 15:01 Oxygen Delivery Method Room Air 05/02/23 15:01 Oxygen Flow Rate 0 05/02/23 15:01 Lab/Test Results Lab/Test Results: Laboratory Tests Range/Units 05/02/23 15:20 WBC (4.4-10.8) 10^3/uL 5.66 RBC (4.36-5.78) 10^6/uL 4.60 Hgb (13.5-17.5) g/dL 15.0 Hct (40.0-50.0) % 41.9 MCV (80-95) fL 91 MCH (27.0-33.0) pg 32.6 MCHC (32.0-36.0) % 35.8 RDW (11.8-14.1) % 11.6 L Plt Count (130-400) 10^3/uL 169 MPV (8.0-11.0) fL 9.2 Immature Gran % 0.5 Neutrophils % 63.9 Lymphocytes % 22.8 Monocytes % 10.8 Eosinophils % 1.1 Basophils % 0.9 Nucleated RBC % (0.0-0.3) % 0.0 Absolute Neutrophils (1.2-6.7) 10^3/uL 3.62 Absolute Lymphocytes (1.2-3.4) 10^3/uL 1.29 Absolute Monocytes (0.1-0.8) 10^3/uL 0.61 Absolute Eosinophils (0.0-0.7) 10^3/uL 0.06 Absolute Basophils (0.0-0.2) 10^3/uL 0.05 Medical Decision Making This dictation utilizes [id number]-heau dictation software and may contain unedited grammatical errors. 63 y/o M presents to ED today with a chief complaint of acute chest pain w/ radiation to L arm and neck, no active chest pain at this time, endorses active nausea. Denies any ACS in history with stress & ECHO two years ago. Patient did spend significant time sedentary on road trip recently, denies clotting history or risk factors. Patients' medical history: GERD, hypertension, kidney stone, migraine. Family and social history: ACS in father. Pertinent exam findings / vital signs include benign cardiopulmonary exam, benign abdomen, neuro intact, VSS stable. Differential / pathologies of concern include ACS, GERD, PE, URI, PNA, Costochondritis, Pleurisy. Diagnostic studies of: -CBC, CMP, Lipase, D-dimer, Magnesium, BNP, EKG, CXR. -CBC benign -Delta trop negative -Lipase WNL -Magnesium WNL -BNP neg -EKG without STEMI, no ischemic changes -CXR negative for any pathology -D-dimer negative Interventions of: -500mL IVF bolus NS. ED Course/Assessment/Plan: 63-year-old male presents with left-sided chest pain without exertional onset, reports mild dizziness, was spending significant amounts of time in a car between [facility], has family history of heart disease around this age and slightly younger. He is on a statin. I performed a cardiac workup with a 3-hour troponin found no evidence of ACS, and negative D-dimer indicating unlikely PE. Counseled that the patient should follow-up with repeat echo and stress test as an outpatient due to his low risk on heart score. The patient was comfortable with this disposition and will return for any other suspicious episodes of chest pain. Recommend he start taking 81mg ASA daily in the meantime. Findings not consistent with ACS, PE, pneumonia, CHF. Disposition of Chest Pain of Uncertain Etiology. Patient verbalized understanding of the plan and return to ED criteria and engaged in shared decision making. Medical Records Medical records reviewed: Yes I reviewed the patient's medical records. Imaging Data Radiologic Study: Attestation: I personally reviewed and interpreted this imaging study as follows: Imaging: X-Ray Radiologist's impression: EXAM: XR CHEST 2V PA LATERAL CLINICAL HISTORY: chest pain. TECHNIQUE: 2D digital imaging was performed. COMPARISON: CR XR CHEST 2V PA LATERAL from 02/16/2023 FINDINGS: 2 views: Heart size is normal. The mediastinum is not widened. Lungs are clear. No infiltrates nor pleural effusions. IMPRESSION: No acute pulmonary findings. Lab Data Lab results reviewed: Yes I reviewed the patient's lab results. Labs: Laboratory Tests Range/Units 05/02/23 05/02/23 15:20 18:20 WBC (4.4-10.8) 10^3/uL 5.66 RBC (4.36-5.78) 10^6/uL 4.60 Hgb (13.5-17.5) g/dL 15.0 Hct (40.0-50.0) % 41.9 MCV (80-95) fL 91 MCH (27.0-33.0) pg 32.6 MCHC (32.0-36.0) % 35.8 RDW (11.8-14.1) % 11.6 L Plt Count (130-400) 10^3/uL 169 MPV (8.0-11.0) fL 9.2 Immature Gran % 0.5 Neutrophils % 63.9 Lymphocytes % 22.8 Monocytes % 10.8 Eosinophils % 1.1 Basophils % 0.9 Nucleated RBC % (0.0-0.3) % 0.0 Absolute Neutrophils (1.2-6.7) 10^3/uL 3.62 Absolute Lymphocytes (1.2-3.4) 10^3/uL 1.29 Absolute Monocytes (0.1-0.8) 10^3/uL 0.61 Absolute Eosinophils (0.0-0.7) 10^3/uL 0.06 Absolute Basophils (0.0-0.2) 10^3/uL 0.05 D-Dimer (<500) ng/mlFEU 254 Sodium (136-145) mmol/L 140 Potassium (3.5-5.1) mmol/L 3.4 L Chloride (98-107) mmol/L 101 Carbon Dioxide (21.0-32.0) mmol/L 29.0 Anion Gap (3-11) mmol/L 10.0 BUN (7-18) mg/dL 27 H Creatinine (0.70-1.30) mg/dL 1.1 Est GFR (CKD-EPI 2020) (mL/min/1.73m2) 76.37 Glucose (74-106) mg/dL 111 H Calcium (8.5-10.1) mg/dL 9.5 Magnesium (1.8-2.4) mg/dL 2.1 Total Bilirubin (0.2-1.0) mg/dL 1.3 H AST (15-37) U/L 17 ALT (16-63) U/L 42 Alkaline Phosphatase (46-116) U/L 68 Troponin I (< or =60) ng/L < 50 < 50 NT-Pro-B Natriuret Pep (<300) pg/mL 37 Total Protein (6.4-8.2) g/dL 7.9 Albumin (3.4-5.0) g/dL 4.7 Lipase (16-77) U/L 32 Quality:SDOH Health Related Social Needs: No Data to Display PFSH All Active Problems (Updated 05/02/23 @ 19:26 by JODI Santamaria) Chest pain of uncertain etiology (Acute) Finger pain, right (Acute) Social History Smoking/Tobacco Use Status: Never Smoking risk assessment performed?: Yes Alcohol Intake: current Alcohol Intake frequency: 0-2 drinks per day Alcohol type: hard liquor Drug use: Never Substance use type: does not use Do you feel safe at home: Yes Do you feel safe in your relationship?: Yes PAWSS Have you Been Recently Intoxicated or Drunk Within the Last 30 days?: No Have you Ever Experienced Previous Episodes of Alcohol Withdrawal?: No Have you ever Experienced Withdrawal Seizures?: No Have you ever Experienced Delirium Tremens(DT)s?: No Have you ever undergone Alcohol Rehabilitation Treatment (i.e, inpt ot outpatient treatment programs)?: No Have you ever Experienced Blackouts?: No Have you ever Combined Alcohol with other Downers within the last 90 days?: No Have you ever Combined Alcohol with any other Substance of Abuse during the last 90 days?: No Positive Blood Alcohol level on Presentation? [PCS.BAL]: No Evidence of Increased Autonomic Activity (i.e. HR>120, tremor, sweating, agitation, nausea)?: No Result: 0
[2023-05-02] MEDS: Normal Saline 500 ML IV (15:42)
[2023-05-02 15:50] LABS: ALT 42 U/L (16-63); AST 17 U/L (15-37); Albumin 4.7 g/dL (3.4-5.0); Alkaline Phosphatase 68 U/L (46-116); BUN 27 mg/dL (7-18); Bilirubin, Total 1.3 mg/dL (0.2-1.0); CREATININE 1.1 mg/dL (0.70-1.30); Calcium 9.5 mg/dL (8.5-10.1); Chloride 101 mmol/L (98-107); Estimated GFR 76.37 (mL/min/1.73m2); Glucose 111 mg/dL (74-106); Lipase 32 U/L (16-77); Magnesium 2.1 mg/dL (1.8-2.4); NT-proBNP 37 pg/mL (<300); Potassium 3.4 mmol/L (3.5-5.1); Sodium 140 mmol/L (136-145); Total Protein 7.9 g/dL (6.4-8.2); Troponin I < 50 ng/L (< or =60)
[2023-05-02 16:01] LABS: D-Dimer 254 ng/mlFEU (<500)
--- NOTE | 2023-05-02 16:15 | DI.RAD_ITS ---
Exam(s) XR CHEST 2V PA LATERAL EXAM: XR CHEST 2V PA LATERAL CLINICAL HISTORY: chest pain. TECHNIQUE: 2D digital imaging was performed. COMPARISON: CR XR CHEST 2V PA LATERAL from 02/16/2023 FINDINGS: 2 views: Heart size is normal. The mediastinum is not widened. Lungs are clear. No infiltrates nor pleural effusions. IMPRESSION: No acute pulmonary findings. DATA REPOSITORY: RADIATION DOSE DELIVERED:
[2023-05-02 18:48] LABS: Troponin I < 50 ng/L (< or =60)
== END 2023-05-02 19:38 | disposition home or self-care (01) ==
PROVIDERS: Emergency Provider Physician Assistant; PCP Physician Assistant
DX: R42 Dizziness and giddiness (principal); R07.9 Chest pain, unspecified; K21.9 Gastro-esophageal reflux disease without esophagitis; I10 Essential (primary) hypertension; Z82.49 Family history of ischemic heart disease and other diseases of the circulatory system; Z79.899 Other long term (current) drug therapy
CPT/HCPCS: 36415; 80053; 83690; 93005; 96361; 99285; 71046; 83735; 83880; 84484; 85025; 85379; 93010; 99284

== ENCOUNTER 2024-02-17 14:04 | Emergency (ER) | payer MEDICAID, SELFPAY ==
[2024-02-17 14:06] VITALS: BP 119/92; PULSE 82; RESP 14; TEMP 36.1; O2SAT 95
--- NOTE | 2024-02-17 14:30 | DI.US_ITS ---
Exam(s) US LOWER EXTREMITY VENOUS RT EXAM: US LOWER EXTREMITY VENOUS RT CLINICAL HISTORY: pain. TECHNIQUE: Lower extremity venous ultrasound performed using grayscale, color-flow, and spectral Do ppler analysis. COMPARISON: No exams were available for comparison FINDINGS: The common femoral, femoral and popliteal veins demonstrate normal compressibility, augmentation, and color Doppler. The posterior tibial and peroneal veins are patent. No saphenous vein thrombosis or other superficial venous thrombosis is seen. No hematoma or Nick's cyst is seen. IMPRESSION: Negative lower extremity ultrasound. No evidence of DVT. DATA REPOSITORY:
--- NOTE | 2024-02-17 14:40 | ED.GENADUL_ITS ---
Discharge Plan Disposition Patient Disposition: Home Condition: Stable Discharge Details Clinical Impression: Acute foot pain Primary Care Provider: Anant Lamb ED Provider: Maria A Barrow Home Meds and New Rx's Prescriptions: New colchicine 0.6 mg capsule 0.6 mg PO DAILY Qty: 3 0RF Rx Instructions: Take 2 caps by mouth then 1 cap my mouth one hour later. No Action hydrocortisone 28.4 GM cream 1 nitin Topical TID PRN cyanocobalamin (vitamin B-12) 1,000 MCG/1 ML solution 1,000 mcg IJ MONTHLY Qty: 1 atorvastatin 40 mg Tablet 40 mg PO DAILY atorvastatin 10 mg Tablet 10 mg PO DAILY lisinopril 10 mg tablet 10 mg PO DAILY Patient Comments: TAKE ONE TABLET BY MOUTH EVERY DAY hydrochlorothiazide 12.5 mg Tablet 12.5 mg PO DAILY albuterol sulfate [Ventolin HFA] 90 mcg/actuation HFA aerosol inhaler 2 inh INHALATION Q4H PRN Patient Comments: INHALE 2 PUFFS BY MOUTH EVERY 4 HOURS NEEDED FOR WHEEZING, USE WITH SPACER amlodipine 5 mg tablet 5 mg PO DAILY Patient Comments: TAKE ONE TABLET BY MOUTH EVERY DAY metoprolol succinate 25 mg tablet extended release 24 hr 25 mg PO DAILY Patient Comments: TAKE ONE TABLET BY MOUTH EVERY DAY escitalopram oxalate 5 mg tablet 5 mg PO DAILY Patient Comments: TAKE ONE TABLET BY MOUTH EVERY DAY budesonide-formoterol [Symbicort] 160-4.5 mcg/actuation HFA aerosol inhaler 2 inh INHALATION BID Patient Comments: INHALE TWO PUFFS BY MOUTH TWICE A DAY Discharge Instructions Instructions: Managing acute pain at home Additional Instructions: Please follow-up with your primary care doctor. If you develop any new or concerning or worsening symptoms please return to the emergency department for reevaluation. HPI General Date/Time Provider Initiated Documentation: 02/17/24 14:19 . HPI Narrative: The patient is a 63-year-old male with a history of celiac disease, hypertension, recent heart attack who comes the emergency department for right foot pain. The patient reports that he woke up around 630 this morning and when he put his foot to the floor he had pain to the sole of the foot and the top of the foot. Reports it seems to radiate up to the knee area. Denies any trauma or injury and states that there has been no recent changes in his routine. Denies any calf pain with this. Denies any calf swelling. Reports he spoke with a client who told him to go to the ER just to get checked out and to make sure he does not have any blood clots. Admits that he had a recent heart attack in December and states he is being seen at [facility] for it. He denies any chest pain or shortness of breath with this however. Denies any fevers or chills. Reports otherwise that he feels at baseline health. Related Data Home Medications ?Medication ?Instructions ?Recorded ?Confirmed cyanocobalamin (vitamin B-12) 1,000 mcg IJ MONTHLY #1 vial 06/06/12 02/17/24 1,000 mcg/mL injection solution hydrocortisone 1 % topical cream 1 nitin topical TID PRN 06/06/12 02/17/24 hydrochlorothiazide 12.5 mg tablet 12.5 mg PO DAILY 05/07/20 02/17/24 atorvastatin 10 mg tablet 10 mg PO DAILY 06/20/21 02/17/24 atorvastatin 40 mg tablet 40 mg PO DAILY 06/20/21 02/17/24 albuterol sulfate 90 mcg/actuation 2 inh inhalation Q4H PRN 02/16/23 02/17/24 aerosol inhaler (Ventolin HFA) lisinopril 10 mg tablet 10 mg PO DAILY 05/02/23 02/17/24 amlodipine 5 mg tablet 5 mg PO DAILY 02/17/24 02/17/24 budesonide-formoterol HFA 160 2 inh inhalation BID 02/17/24 02/17/24 mcg-4.5 mcg/actuation aerosol inhaler (Symbicort) colchicine 0.6 mg capsule 0.6 mg PO DAILY #3 caps 02/17/24 escitalopram oxalate 5 mg tablet 5 mg PO DAILY 02/17/24 02/17/24 metoprolol succinate 25 mg 25 mg PO DAILY 02/17/24 02/17/24 tablet,extended release 24 hr Previous Rx's ?Medication ?Instructions ?Recorded colchicine 0.6 mg capsule 0.6 mg PO DAILY #3 caps 02/17/24 Allergies Allergy/AdvReac Type Severity Reaction Status Date / Time praziquantel Allergy Severe Anaphylaxis Unverified 02/17/24 14:13 gluten AdvReac Diarrhea Unverified 02/17/24 14:13 General Stated Complaint: Orthopedic JOSE: 3 Review of Systems Narrative: Review of systems are negative except as mentioned. Constitutional Constitutional: Denies fever(s) Cardiovascular Cardiovascular: Denies chest pain and Denies dyspnea Respiratory Respiratory: Denies cough and Denies dyspnea Gastrointestinal Gastrointestinal: Denies abdominal pain and Denies vomiting Musculoskeletal Musculoskeletal: Denies numbness and Denies tingling Comments: Admits to right foot pain. Neurologic Neurologic: Denies numbness and Denies tingling Exam Const General: not in acute distress Orientation: alert, awake and oriented x3 Cardio Other: The patient is strong right dorsalis pedis pulse. Skin Other: No overlying erythema or increased warmth to touch is noted to the patient's right foot, right ankle, leg, knee or thigh. Neuro Other: The patient has intact sensation to light touch throughout the entire right lower extremity and all digits of the right foot. Extrem Ankle/foot/toe images: 2 1. Patient has tenderness to palpation along the plantar fascia worse along the calcaneus. 2. Patient has soft tissue swelling along this region without overlying erythema or increased warmth to touch. 3. Patient has tenderness palpation in this region without overlying erythema or increased warmth to touch. Other: No calf tenderness is noted to palpation bilaterally. No lower extremity asymmetry is noted. He has no ankle tenderness to palpation and range of motion testing in all planes of the right side. He has no right knee tenderness to palpation. The patient did have tenderness to palpation to the right foot and discomfort on ankle flexion and dorsiflexion. Course Vital Signs Vital signs: Vital Signs Temperature 36.1 C L 02/17/24 14:06 Pulse 82 02/17/24 14:06 Respiratory Rate 14 02/17/24 14:06 Blood Pressure 119/92 H 02/17/24 14:06 Pulse Oximetry 95 02/17/24 14:06 Temperature 36.1 C L 02/17/24 14:06 Temperature Source Skin 02/17/24 14:06 Pulse 82 02/17/24 14:06 Respiratory Rate 14 02/17/24 14:06 Blood Pressure 119/92 H 02/17/24 14:06 Blood Pressure Position Sitting 02/17/24 14:06 Pulse Oximetry 95 02/17/24 14:06 Oxygen Delivery Method Room Air 02/17/24 14:06 Oxygen Flow Rate 0 02/17/24 14:06 Pain Level 7 02/17/24 14:06 Medical Decision Making The patient's physical exam is more concerning for musculoskeletal process nevertheless he was concerned about blood clots therefore in spite of lower suspicion I ordered ultrasound study but I ordered an x-ray as well. Imaging studies are back and they are unremarkable. The patient is quite relieved in particular that he has no DVT. I told the patient of plan for discharge at this point but that I would like to try medication to give him relief. I talked him about getting crutches or even a splint which he declined. Patient asked if gout can present similarly and I told him it can affect theoretically any joint in his body. Reports that he did indulge over [place] therefore I told him that we can try gout medication for now to see if this will give him relief versus other narcotics so prescription is sent to his preferred pharmacy. He is asked to follow-up with his primary care doctor regardless but urged to return to the emergency department with any worsening symptoms or any other concerns. Imaging Data Radiologic Study: Imaging: X-Ray (Foot x-ray) and Ultrasound Radiologist's impression: US: Negative lower extremity ultrasound. No evidence of DVT. X-ray: No acute abnormality. Quality:SDOH Health Related Social Needs: 2 No Data to Display PFSH All Active Problems (Updated 02/17/24 @ 16:25 by Maria A Barrow DO) Acute foot pain (Acute) Finger pain, right (Acute) Social History Smoking/Tobacco Use Status: Never Smoking risk assessment performed?: Yes Alcohol Intake: current Alcohol Intake frequency: 0-2 drinks per day Alcohol type: hard liquor Drug use: Never Substance use type: does not use Do you feel safe at home: Yes Do you feel safe in your relationship?: Yes
--- NOTE | 2024-02-17 15:54 | DI.RAD_ITS ---
Exam(s) XR FOOT RT COMPLETE EXAM: XR FOOT RT COMPLETE CLINICAL HISTORY: pain. TECHNIQUE: 2D digital imaging was performed of the right foot. Three images were obtained. AP, obl ique and lateral views were obtained. COMPARISON: There are no priors for comparison. FINDINGS: BONES: No acute fracture is present. No bony destructive lesion is seen. JOINTS: No dislocation present. At the 1st metatarsophalangeal joint there osteophytes present. The joint spaces are otherwise well maintained. There is a mild hallux valgus deformity. SOFT TISSUE: Normal. IMPRESSION: No acute abnormality. DATA REPOSITORY: RADIATION DOSE DELIVERED:
== END 2024-02-17 16:35 | disposition home or self-care (01) ==
PROVIDERS: Emergency Provider Emergency Medicine; PCP Physician Assistant
DX: M79.671 Pain in right foot (principal); Z86.79 Personal history of other diseases of the circulatory system; Z87.19 Personal history of other diseases of the digestive system; I10 Essential (primary) hypertension; Z87.39 Personal history of other diseases of the musculoskeletal system and connective tissue
CPT/HCPCS: 99284; 73630; 93971

== ENCOUNTER 2024-12-04 05:23 | Emergency (ER) | payer MEDICAID, SELFPAY ==
[2024-12-04] VITALS (53 sets, daily range): BP systolic 101–150; BP diastolic 73–98; PULSE 81–105; RESP 13–34; TEMP 36.6; O2SAT 93–99
--- NOTE | 2024-12-04 05:15 | RT.EKG_ITS ---
APPROVED REPORT Exam: Resting ECG Reason for Exam: Chest tightness Patient Location: E HR:88 bpm ECG Measurements Heart Rate 88 AXIS VA 191 P 68 QRSd 86 QRS 13 QT 387 T 62 QTc 468 Conclusion Sinus rhythm...normal P axis, V-rate 60- 99 ST elevation, consider inferior injury...ST >0.08mV, II III aVF Physician: No STEMI
[2024-12-04 05:41] LABS: Abs Immature Grans 0.03 10^3/uL (0.0-0.06); HCT 39.5 % (40.0-50.0); HGB 14.1 g/dL (13.5-17.5); Immature Grans % 0.4 %; MCH 32.7 pg (27.0-33.0); MCHC 35.7 % (32.0-36.0); MCV 92 fL (80-95); MPV 9.3 fL (8.0-11.0); Platelet Count 145 10^3/uL (130-400); RBC 4.31 10^6/uL (4.36-5.78); RDW 12.0 % (11.8-14.1); RDW-SD 40.5 fL; WBC 7.89 10^3/uL (4.4-10.8)
--- NOTE | 2024-12-04 05:45 | DI.CT_ITS ---
Exam(s) CT CHEST PE CTA EXAM: CT CHEST PE CTA CLINICAL HISTORY: chest pain w/ SOB, eval for PE and eval aorta. TECHNIQUE: Imaging Protocol: Axial CT angiography was performed with multi- slice acquisition and multi-planar reconstructions as well as axial, coronal and sagittal MIP reconstructions. Computer aided detection (CAD) was utilized. CONTRAST MATERIAL: Intravenous: Omnipaque 350 Contrast volume:100 ml COMPARISON: CR XR CHEST 2V PA LATERAL from 05/02/2023 FINDINGS: Pulmonary Arteries: No evidence of filling defect to suggest pulmonary emboli. Mediastinum and Monserrat: No dominant adenopathy or fluid collection. Pulmonary parenchyma: No consolidation or dominant measurable mass. Benign calcified nodule in the left upper lobe. Pleura: No effusion or pneumothorax. Heart: The heart is not dilated. Moderate coronary artery calcifications are seen. Aorta: Thoracic aorta non-dilated. No dissection. Upper abdomen: No acute findings. Cholecystectomy. Bones: Unremarkable for age. Tubes, Catheters, and Lines: None Soft tissues: Unremarkable. IMPRESSION: No evidence of pulmonary embolism or other acute abnormality. The preliminary [facility] report was reviewed. RADIATION DOSE DELIVERED: 146.42mGy.cm Total DLP DATA REPOSITORY: All CT scans at this facility are submitted to the National Radiology Data Registry (NRDR) Dose Index Registry (DIR) with the [employer] (A[employer]). RADIATION OPTIMIZATION: All CT scans at this facility use at least one of these dose optimization techniques: automated exposure control; mA and/or kV adjustment per patient size (includes targeted exams where dose is matched to clinical indication); or iterative reconstruction.
[2024-12-04 05:55] LABS: INR 1.0 (0.9-1.1); PTT Activated 24.8 sec (20.6-30.2); Prothrombin Time 10.4 sec (9.1-11.1)
--- NOTE | 2024-12-04 05:58 | W.ED.GENAD ---
Discharge Plan Discharge Details Chief Complaint: Chest Pain Clinical Impression: Chest pain Primary Care Provider: Anant Lamb ED Provider: Matti Butts Home Meds and New Rx's Prescriptions: No Action hydrocortisone 28.4 GM cream 1 nitin Topical TID PRN cyanocobalamin (vitamin B-12) 1,000 MCG/1 ML solution 1,000 mcg IJ MONTHLY Qty: 1 atorvastatin 40 mg Tablet 40 mg PO DAILY atorvastatin 10 mg Tablet 10 mg PO DAILY lisinopril 10 mg tablet 10 mg PO DAILY Patient Comments: TAKE ONE TABLET BY MOUTH EVERY DAY hydrochlorothiazide 12.5 mg Tablet 12.5 mg PO DAILY albuterol sulfate [Ventolin HFA] 90 mcg/actuation HFA aerosol inhaler 2 inh INHALATION Q4H PRN Patient Comments: INHALE 2 PUFFS BY MOUTH EVERY 4 HOURS NEEDED FOR WHEEZING, USE WITH SPACER escitalopram oxalate 5 mg tablet 5 mg PO DAILY Patient Comments: TAKE ONE TABLET BY MOUTH EVERY DAY budesonide-formoterol [Symbicort] 160-4.5 mcg/actuation HFA aerosol inhaler 2 inh INHALATION BID Patient Comments: INHALE TWO PUFFS BY MOUTH TWICE A DAY colchicine 0.6 mg capsule 0.6 mg PO DAILY Qty: 3 0RF Rx Instructions: Take 2 caps by mouth then 1 cap my mouth one hour later. HPI General Date/Time Provider Initiated Documentation: 12/04/24 05:34. HPI Narrative: This is a 64-year-old male with a past medical history of high cholesterol, pernicious anemia, celiac's disease, chronic doxycycline for his skin, with history of suspected coronary artery disease who presents today for evaluation of chest pain. Patient states that he woke up at around 3:45 AM with a central/right-sided chest pressure. Pain/pressure was bilateral in nature but it was stronger on the right-hand side. There is a pleuritic component that was made worse with a deep breath. He took 2x 325 mg aspirin tablets as well as 2 Tylenol's. The pain notably improved within an hour, EMS was called and the patient was brought to the ER for further assessment. He still does have some mild chest pressure which is worse with breathing. He denies any syncope. He describes a sensation of feeling like there is a bubble in his chest. He denies any tearing or ripping sensation of significance. He denies any severe headache. No other complaints at this time. Historically the patient states that he was in [place] about a year or so ago where he had a similar episode, it was recommended that he have cardiac catheterization but he declined until he came back to the [facility]. Here in the [facility] he did have a CT angiogram of his coronary arteries which did show calcified and noncalcified plaque in the proximal LAD causing moderate luminal narrowing, and coronary calcium score of 372 consistent with moderate atherosclerotic plaque burden. Of note he did have an exercise stress test in 2020 which was unremarkable at that time. Patient does not smoke. No history of NC or stroke otherwise. No other complaints at this time. Denies PE risk factors such as recent long car rides, immobilization, recent surgery, prior history of DVT or PE, family history of PE or DVT, morbid obesity, exogenous estrogen and smoking, hemoptysis, history of cancer. Related Data Home Medications ?Medication ?Instructions ?Recorded ?Confirmed cyanocobalamin (vitamin B-12) 1,000 mcg IJ MONTHLY #1 vial 06/06/12 12/04/24 1,000 mcg/mL injection solution hydrocortisone 1 % topical cream 1 nitin topical TID PRN 06/06/12 12/04/24 hydrochlorothiazide 12.5 mg tablet 12.5 mg PO DAILY 05/07/20 12/04/24 atorvastatin 10 mg tablet 10 mg PO DAILY 06/20/21 12/04/24 atorvastatin 40 mg tablet 40 mg PO DAILY 06/20/21 12/04/24 albuterol sulfate 90 mcg/actuation 2 inh inhalation Q4H PRN 02/16/23 12/04/24 aerosol inhaler (Ventolin HFA) lisinopril 10 mg tablet 10 mg PO DAILY 05/02/23 12/04/24 budesonide-formoterol HFA 160 2 inh inhalation BID 02/17/24 12/04/24 mcg-4.5 mcg/actuation aerosol inhaler (Symbicort) colchicine 0.6 mg capsule 0.6 mg PO DAILY #3 caps 02/17/24 12/04/24 escitalopram oxalate 5 mg tablet 5 mg PO DAILY 02/17/24 12/04/24 Previous Rx's ?Medication ?Instructions ?Recorded colchicine 0.6 mg capsule 0.6 mg PO DAILY #3 caps 02/17/24 Allergies Allergy/AdvReac Type Severity Reaction Status Date / Time praziquantel Allergy Severe Anaphylaxis Unverified 12/04/24 05:35 gluten AdvReac Diarrhea Unverified 12/04/24 05:35 General Stated Complaint: Chest Pain JOSE: 3 Exam Narrative Exam Narrative: 1.Const: Well-nourished, Well-developed, appearing stated age 2.Eyes: PERRL, no conjunctival injection, and symmetrical lids. 3.ENT: Atraumatic external nose and ears. Moist MM. Neck: Symmetric, trachea midline, No thyromegaly. 4.CVS: +S1/S2, Peripheral pulses 2+ and equal in all extremities. Brisk capillary refill in all extremities. 5.RESP: Unlabored respiratory effort. Clear to auscultation bilaterally. No wheezes rales or rhonchi 6.GI: Soft, Nontender/Nondistended, No hepatosplenomegaly. No guarding or rebound. 7.MSK: Normocephalic/Atraumatic, Extremities w/o deformity or ttp No cyanosis or clubbing, Normal movement of all extremities 8.Skin: Warm, Dry. No rashes or lesions. 9.Neuro: roller gold leaf II-XII grossly intact. Sensation grossly intact, no focal neurologic deficits. 10.Psych: (AAO) x3. Appropriate mood and affect Course Vital Signs Vital signs: Vital Signs Temperature 36.6 C 12/04/24 05:20 Pulse 90 12/04/24 05:20 Respiratory Rate 16 12/04/24 05:20 Blood Pressure 147/86 H 12/04/24 05:20 Pulse Oximetry 96 12/04/24 05:20 Temperature 36.6 C 12/04/24 05:20 Temperature Source Tympanic 12/04/24 05:20 Pulse 90 12/04/24 05:20 Respiratory Rate 16 12/04/24 05:20 Blood Pressure 147/86 H 12/04/24 05:20 Blood Pressure Position Supine 12/04/24 05:20 Pulse Oximetry 96 12/04/24 05:20 Oxygen Delivery Method Room Air 12/04/24 05:20 Oxygen Flow Rate 0 12/04/24 05:20 Comment no pain, stated pressure 12/04/24 05:20 Lab/Test Results Lab/Test Results: Laboratory Tests Range/Units 12/04/24 05:34 WBC (4.4-10.8) 10^3/uL 7.89 RBC (4.36-5.78) 10^6/uL 4.31 L Hgb (13.5-17.5) g/dL 14.1 Hct (40.0-50.0) % 39.5 L MCV (80-95) fL 92 MCH (27.0-33.0) pg 32.7 MCHC (32.0-36.0) % 35.7 RDW (11.8-14.1) % 12.0 Plt Count (130-400) 10^3/uL 145 MPV (8.0-11.0) fL 9.3 Immature Gran % % 0.4 Neutrophils % % 79.2 Lymphocytes % % 10.4 Monocytes % % 7.9 Eosinophils % % 1.6 Basophils % % 0.5 Nucleated RBC % (0.0-0.3) % 0.0 Absolute Neutrophils (1.2-6.7) 10^3/uL 6.25 Absolute Lymphocytes (1.2-3.4) 10^3/uL 0.82 L Absolute Monocytes (0.1-0.8) 10^3/uL 0.62 Absolute Eosinophils (0.0-0.7) 10^3/uL 0.13 Absolute Basophils (0.0-0.2) 10^3/uL 0.04 PT (9.1-11.1) sec 10.4 INR (0.9-1.1) 1.0 APTT (20.6-30.2) sec 24.8 Medical Decision Making This is a 64-year-old male with a past medical history of high cholesterol, pernicious anemia, celiac's disease, chronic doxycycline for his skin, with history of suspected coronary artery disease who presents today for evaluation of chest pain. Patient states that he woke up at around 3:45 AM with a central/right-sided chest pressure. Pain/pressure was bilateral in nature but it was stronger on the right-hand side. There is a pleuritic component that was made worse with a deep breath. He took 2x 325 mg aspirin tablets as well as 2 Tylenol's. The pain notably improved within an hour, EMS was called and the patient was brought to the ER for further assessment. He still does have some mild chest pressure which is worse with breathing. He denies any syncope. He describes a sensation of feeling like there is a bubble in his chest. He denies any tearing or ripping sensation of significance. He denies any severe headache. No other complaints at this time. Historically the patient states that he was in [place] about a year or so ago where he had a similar episode, it was recommended that he have cardiac catheterization but he declined until he came back to the [facility]. Here in the [facility] he did have a CT angiogram of his coronary arteries which did show calcified and noncalcified plaque in the proximal LAD causing moderate luminal narrowing, and coronary calcium score of 372 consistent with moderate atherosclerotic plaque burden. Of note he did have an exercise stress test in 2020 which was unremarkable at that time. Patient does not smoke. No history of NC or stroke otherwise. No other complaints at this time. Denies PE risk factors such as recent long car rides, immobilization, recent surgery, prior history of DVT or PE, family history of PE or DVT, morbid obesity, exogenous estrogen and smoking, hemoptysis, history of cancer. Also of note the patient does state that 2 days ago on Tuesday he was taking a light jog while at a park to go get something that he had left on the park bench, and he was notably more short of breath than he normally would be. He had no significant chest pain or tenderness at that time Exam demonstrates an otherwise well-appearing no acute distress. Vital signs stable. EKG does not show evidence of STEMI. No significant ST elevation. Differential includes unstable angina, less likely PE. Less likely dissection. GERD or musculoskeletal etiology is also on the differential. We will evaluate for these etiologies, monitor closely and reassess 7:[address] scan negative for acute process. No evidence of pulmonary embolism. No other abnormality per radiology. Initial troponin normal, still pending repeat troponin. Potassium minimally low at 3.3 but otherwise unremarkable. proBNP normal suggesting no heart strain. Lipase normal. Patient remains with minimal symptomatology. He continues to have no wheezes or hypoxemia to suggest asthma. However with the patient's known coronary artery disease, this does put him in the moderate to high risk factor group. We will reach out to [facility] pending repeat troponin. I do feel that at minimum stress test is indicated, if not potential cardiac catheterization as I am concerned that he may be having a component of unstable angina. Patient will be signed out to my colleague Dr. Sanchez for follow-up on troponins and [facility] consultation. FINDINGS: Pulmonary arteries: No pulmonary embolus appreciated. Aorta: Atherosclerotic changes in the aorta and its branches. Lungs: Calcified left upper lobe nodule. Pleural spaces: No pleural effusion. Heart: No pericardial effusion. Coronary arteries: Coronary artery calcifications. Lymph nodes: No acute abnormality seen. Gallbladder and biliary ducts: Cholecystectomy. Bones/joints: No acute pertinent abnormality seen. Soft tissues: No acute pertinent abnormality seen. IMPRESSION: No acute findings to explain reported symptoms. Thank you for allowing us to participate in the care of your patient. Dictated and Authenticated by: Samantha Fisher MD 12/04/2024 7:02 AM Eastern Time ([place] & [place]) PFS All Active Problems (Updated 12/04/24 @ 07:51 by Matti Butts DO) Chest pain (Acute) Finger pain, right (Acute) Social History Smoking/Tobacco Use Status: Never Smoking risk assessment performed?: Yes Alcohol Intake: current Alcohol Intake frequency: 0-2 drinks per day Alcohol type: hard liquor Drug use: Never Substance use type: does not use Do you feel safe at home: Yes Do you feel safe in your relationship?: Yes POCUS Exam (ED) Limited Cardiac Exam DATE OF EXAM: 12/04/24 TIME OF EXAM: 06:10 PROVIDER THAT PERFORMED THE STUDY: Matti Butts IS THIS A REPEAT EXAM DURING THIS ENCOUNTER: no REASON FOR EXAM: Chest pain VISUALIZED STRUCTURES: Left atrium, Left ventricle, Right ventricle and Interventricular septum VIEW OBTAINED: Parasternal long-axis PERTINENT FINDINGS/IMPRESSION: No apparent abnormalities Exam complete
[2024-12-04 06:04] LABS: ALT 36 U/L (16-63); AST 16 U/L (15-37); Albumin 4.1 g/dL (3.4-5.0); Alkaline Phosphatase 79 U/L (46-116); Anion Gap 12.7 mmol/L (3-11); BUN 28 mg/dL (7-18); Bilirubin, Total 0.8 mg/dL (0.2-1.0); CO2 26.3 mmol/L (21.0-32.0); Calcium 8.8 mg/dL (8.5-10.1); Chloride 100 mmol/L (98-107); Estimated GFR 68.38 (mL/min/1.73m2); Glucose 109 mg/dL (74-106); Lipase 35 U/L (<78); NT-proBNP 37 pg/mL (<300); Potassium 3.3 mmol/L (3.5-5.1); Sodium 139 mmol/L (136-145); Total Protein 7.0 g/dL (6.4-8.2); Troponin I 7 ng/L (<or=76)
[2024-12-04] MEDS: Omnipaque 350 MG/ML 100 ML BTL IJ (06:15)
[2024-12-04] MEDS: Normal Saline Flush 10 ML SYR IVP (06:16)
[2024-12-04] MEDS: Normal Saline - Diluent 50 ML VIAL IJ (06:16)
--- NOTE | 2024-12-04 07:03 | DI.VRAD_ITS ---
PROCEDURE INFORMATION: Exam: CTA Chest With Contrast Exam date and time: 12/04/2024 6:13 AM Age: 64 years old Clinical indication: Other: Tightness; Prior surgery; Surgery date: 6+ months; Surgery type: Zyphoid process removed; Chest pain w/ SOB, eval for pe and eval aorta TECHNIQUE: Imaging protocol: Computed tomographic angiography of the chest with contrast. Exam focused on the arteries. 3D rendering (Not supervised by radiologist): MIP and/or 3D reconstructed images were created by the technologist. Radiation optimization: All CT scans at this facility use at least one of these dose optimization techniques: automated exposure control; mA and/or kV adjustment per patient size (includes targeted exams where dose is matched to clinical indication); or iterative reconstruction. Contrast material: OMNIPAQUE 350; Contrast volume: 100 ml; Contrast route: INTRAVENOUS (IV); COMPARISON: No relevant prior studies are available for comparison. FINDINGS: Pulmonary arteries: No pulmonary embolus appreciated. Aorta: Atherosclerotic changes in the aorta and its branches. Lungs: Calcified left upper lobe nodule. Pleural spaces: No pleural effusion. Heart: No pericardial effusion. Coronary arteries: Coronary artery calcifications. Lymph nodes: No acute abnormality seen. Gallbladder and biliary ducts: Cholecystectomy. Bones/joints: No acute pertinent abnormality seen. Soft tissues: No acute pertinent abnormality seen. IMPRESSION: No acute findings to explain reported symptoms. Dictated and Authenticated by: Samantha Fisher MD. Orderin Beckie Chino MD
--- NOTE | 2024-12-04 07:30 | RT.EKG_ITS ---
APPROVED REPORT Exam: Resting ECG Reason for Exam: chest pain Patient Location: E HR:90 bpm ECG Measurements Heart Rate 90 AXIS UT 177 P 75 QRSd 87 QRS 15 QT 382 T 68 QTc 467 Conclusion Sinus rhythm...normal P axis, V-rate 60- 99 ST elevation suggests acute pericarditis...ST >0.10mV, ant/lat/inf No Occlusion DC
--- NOTE | 2024-12-04 07:35 | ED.PROG_ITS ---
Date of service: 12/04/24 Time of Service: 07:36 Medical Decision Making I received signout on this 64-year-old male with known coronary artery disease and chest pressure that is slightly worse with exertion. His ECG does have some subtle ST segment upsloping in aVF. His repeat ECG shows subtle T wave inversi on in aVL. Transfer request has been initiated to [facility]. HEART SCORE Chest pain Diagnostic Protocol: [- History/Physical/Gestalt: Moderately Suspicious (+1)] [- EKG: Nonspecific repolarization (+1)] [- AGE: 45-65 (+1)] [- RISK FACTORS: 3 or more risk factors and/or known CAD (+2)] [-TROPONIN: <= normal limit (0)] - TOTAL SCORE: 5 I spoke to John Cardenas from cards at [facility]. He accepted the patient on behalf of of Dr. Roro Thomas. He did advise clopidogrel load with heparin ACS protocol. I updated the patient. 10:20 am I received a call again from [facility] and spoke again to John Dixon. He had reviewed the patient's ECG with border guard. They no longer felt the patient required urgent cath. They advised ED formal echocardiogram with possible stress test. Met with patient. We do not unfortunately stress test available until 12/06. Patient does not want to stay in the hospital as long. I have ordered an echo. I spoke to nurse Salazar from patient's primary care provider's office. She will help to arrange outpatient stress testing. 12:23 PM Patient continues to feel improved. He tolerated p.o. His echocardiogram showed no acute decrease in his ejection fraction. There is no comment on any wall motion abnormalities. Patient I discussed that he should return to the ED if he develop any recurrent chest pain nausea or vomiting that did not stop or if he had any other concerns. In the absence of any fevers my suspicion for pericarditis was low. Given no significant pericardial effusion nor any pericardial effusion I did not feel patient required hospitalization. Will treat with high-dose NSAIDs. Discharge Plan Disposition Patient Disposition: Home Discharge Details Clinical Impression: Chest pain Primary Care Provider: Anant Lamb ED Provider: Finesse Sanchez Home Meds and New Rx's Prescriptions: Continued hydrocortisone 28.4 GM cream 1 nitin Topical TID PRN cyanocobalamin (vitamin B-12) 1,000 MCG/1 ML solution 1,000 mcg IJ MONTHLY Qty: 1 atorvastatin 40 mg Tablet 40 mg PO DAILY atorvastatin 10 mg Tablet 10 mg PO DAILY lisinopril 10 mg tablet 10 mg PO DAILY Patient Comments: TAKE ONE TABLET BY MOUTH EVERY DAY hydrochlorothiazide 12.5 mg Tablet 12.5 mg PO DAILY albuterol sulfate [Ventolin HFA] 90 mcg/actuation HFA aerosol inhaler 2 inh INHALATION Q4H PRN Patient Comments: INHALE 2 PUFFS BY MOUTH EVERY 4 HOURS NEEDED FOR WHEEZING, USE WITH SPACER escitalopram oxalate 5 mg tablet 5 mg PO DAILY Patient Comments: TAKE ONE TABLET BY MOUTH EVERY DAY budesonide-formoterol [Symbicort] 160-4.5 mcg/actuation HFA aerosol inhaler 2 inh INHALATION BID Patient Comments: INHALE TWO PUFFS BY MOUTH TWICE A DAY colchicine 0.6 mg capsule 0.6 mg PO DAILY Qty: 3 0RF Rx Instructions: Take 2 caps by mouth then 1 cap my mouth one hour later. Discharge Instructions Additional Instructions: You are seen in the emergency department for chest pain. Your blood work showed no sign of heart attack. There is concern that you could possibly have a viral infection around your heart for which you should take 600 mg of ibuprofen every 8 hours for 7 to 10 days. Please follow-up with your primary care provider and to discuss whether or not you would benefit from an additional taper. As we discussed please return to the emergency department if you develop recurrent chest pain or if you pass out. Your primary care provider will help to arrange an outpatient stress test. Your echocardiogram shows that your heart is working well and there is no significant fluid collection around your heart.
[2024-12-04 07:56] LABS: Troponin I 5 ng/L (<or=76)
--- NOTE | 2024-12-04 09:00 | DI.US_ITS ---
APPROVED REPORT EXAM: Comprehensive 2D, Doppler, and color-flow Echocardiogram Patient Location: ER Room/Bed: 1 Automotive Teacher: Shakila Gage RDCS (AE) Indications: Chest pain Other Information Study Quality: Adequate. Technically limited study due to exam done bedside ER. Conclusion Normal left ventricular wall thickness and chamber size. Ejection fraction is 59%. Wall motion is normal Normal right ventricular size and function Both atria are normal in size There is no structural or hemodynamically significant valvular disease Normal estimated right ventricular systolic pressure 26 mmHg Very mildly dilated ascending aorta, 3.72 cm Wall motion Left Ventricle The left ventricle is normal size. The left ventricular systolic function is normal. The left ventricular ejection fraction is within the normal range. There is normal left ventricular wall thickness. There is normal LV segmental wall motion. There is no ventricular septal defect visualized. LVEF is 59%. Right Ventricle The right ventricle is normal size. The right ventricular systolic function is normal. Atria The left atrium size is normal. The right atrium size is normal. The interatrial septum is intact with no evidence for an atrial septal defect. Aortic Valve The aortic valve is normal in structure. Aortic valve is trileaflet. There is no aortic valvular stenosis. No aortic regurgitation is present. Mitral Valve The mitral valve is normal in structure. No evidence of mitral valve stenosis. Trace mitral regurgitation. Tricuspid Valve The tricuspid valve is normal in structure. There is no tricuspid valve stenosis. Trace tricuspid regurgitation. The RVSP is 25.7 mmHg. Pulmonic Valve The pulmonary valve is normal in structure. There is no pulmonic valvular stenosis. There is no pulmonic valvular regurgitation. Great Vessels The aortic root is normal in size. The ascending aorta is mildly dilated. Aortic arch is not well visualized. IVC is normal in size and collapses >50% with inspiration. Pericardium There is no pericardial effusion. 2D Dimensions IVSD d PLAX 0.80 cm M: 0.6-1.2 Ao Root d 3.52 cm M: 3.1 - 3.7 LVPW d PLAX 0.82 cm M: 0.6 - 1.2 Ao Asc Diam d 3.72 cm M: 2.6 - 3.4 LVID d PLAX 4.50 cm M: 4.2 - 5.8 LVDs 3.10 cm M: 2.5 - 4.0 LV EF Teichholz 59.6 % FS 31.55 % LV EDV (Teich) 91.3 mL LV ESV (Teich) 36.9 mL M-Mode TAPSE 2.24 cm (M/F) >1.7 Auto EF LV EDV A4C 128.6 mL LV EDV A2C 151.4 mL LV EDV BP 138.7 mL LV ESV A4C 52.2 mL LV ESV A2C 62.6 mL LV ESV BP 57.1 mL LVEF(%) A4C 59.4 % LVEF(%) A2C 58.7 % LVEF(%) BP 58.8 % LV SV A4C 76.4 ml LV SV A2C 88.8 ml LV SV BP 81.6 ml LV CO A4C 6.6 L/min LV CO A2C 7.7 L/min LV CO BP 7.2 L/min HR A4C 86.33 BPM HR A2C 86.76 BPM LV EDV Index (BP) LA Volume LA Length A4C 4.7 cm LA Length A2C 5.8 cm LA Area A4C s 13.84 cm2 LA Area A2C s 18.47 cm2 LA Vol A4C A-L 34.39 mL LA Vol A2C A-L 49.80 mL LA Vol Biplane A-L 45.9 mL LA Vol/BSA A4C A-L LA Vol/BSA A2C A-L LA Vol/BSA BP A-L 20.9 mL/m2 LA Vol A4C MOD 32.5 mL LA Vol A2C MOD 46.3 mL LA Vol BP MOD 42.9 mL RA Volume RA Area A4C 13.3 cm2 RA ESV A4C (A-L) 29.3mL RA Vol/BSA A4C A-L RA Length A4C 5.1 cm RA ESV A4C (MOD) 27.5mL LV Diastology MV E' medial 0.098 (>0.07 m/s) MV E Vmax 0.87 (0.4-1.3 m/s) MV E/E' MED 8.88 (<14) MV A Vmax 1.15 (0.4-1.3 m/s) MV E' lateral 0.090 (>0.1 m/s) E/A Ratio 0.8 MV E/E' LAT 9.68 (<14) MV E' Average 0.094 m/s MV E/E'(average) 9.26 Aortic Valve AoV Vmax 1.27 m/s LVOT Vmax 1.23 m/s AoV Peak Grad 6.5 mmHg LVOT Peak Grad 6.0 mmHg AoV Area (Vmax) 3.24 cm2 LVOT VTI 0.214 m AoV VTI 0.234 m LVOT Mean Grad 4.0 mmHg AoV Mean Venkatesh. 0.93 m/s LVOT SV 72.20 mL AoV Mean Grad 3.9 mmHg LVOT Diam s 2.05 cm AoV Area (VTI) 3.08 cm2 AV Regurg Peak Gr. 6.49 mmHg Velocity Ratio 0.97 Mitral Valve MV DT 385 (160-240 msec) MV Vmax TIPS 1.12 m/s MV Mean Grad 2.3 (<2mmHg) MV VTI 0.263 m Pulmonary Valve PV Vmax 0.84 (0.5-1.5 m/s) RVOT Vmax 0.67 m/s PV Peak Grad 2.8 mmHg RVOT Peak Gr. 1.8 mmHg PV Mean Venkatesh 0.63 m/s RVOT VTI 0.126 m PV Mean Grad 1.8 mmHg RVOT Mean Gr. 0.9 mmHg Tricuspid Valve RA Pressure 3.00 mmHg TR Vmax 2.38 m/s TV S' 0.19 m/s TR Peak Grad 22.7 mmHg RVSP (TR) 25.7 mmHg
[2024-12-04 09:14] LABS: Troponin I 6 ng/L (<or=76)
[2024-12-04 12:47] LABS: ESR 4 mm/hr (0-20)
[2024-12-04] MEDS: Ibuprofen 600 MG TAB PO (12:49)
[2024-12-04 13:02] LABS: C-Reactive Protein < 0.50 mg/dL (<or=0.5)
== END 2024-12-04 13:03 | disposition home or self-care (01) ==
PROVIDERS: Student in an Organized Health Care Education/Training Program; Emergency Provider Emergency Medicine; PCP Physician Assistant
DX: R07.9 Chest pain, unspecified (principal); R51.9 Headache, unspecified
CPT/HCPCS: 99285; 99284; 36415; 00123; 71275; 80053; 83690; 85652; 93005; 93308; 83880; 84484; 85025; 85610; 85730; 86140; 93010; 93306; J3490